=== PATIENT | male | born 1965 | race Caucasian/White ===

== ENCOUNTER 2017-06-04 08:25 | Emergency (ER) | payer OTHER ==
[2017-06-04 10:22] VITALS: BP 149/91
--- NOTE | 2017-06-04 19:06 | ED ---
Skin Complaint - HPI Summary HPI Summary: Patient presents with slightly raised non-pruritic erythematous hives to the dorsum of the hands bilaterally and cheeks which began yesterday and remained constant. He denies pain. He denies medication changes, detergents, or soaps. He states he is out in the [place] a lot, but has never had this before. He takes a blood thinner, but denies other medications. He is otherwise healthy. Denies sore throat, SOB, difficulty breathing. He denies seasonal allergies. Nothing makes the hives better or worse and he has not tried any medications for relief. - History of Current Complaint Chief Complaint: EDRashSkinAbscess Time Seen by Provider: 06/04/17 09:35 Stated Complaint: RASH Hx Obtained From: Patient Onset/Duration: Started Days Ago Skin Exposure Onset/Duration: Hours Ago Timing: Constant Onset Severity: Mild Current Severity: Mild Pain Intensity: 5 Pain Scale Used: 0-10 Numeric Skin Location: Face, Hand Character: Swelling, Redness, Raised Aggravating Symptom(s): Nothing Alleviating Symptom(s): Nothing Associated Signs & Symptoms: Negative Related History: Possible Reaction to: Environmental Exposure - Allergy/Home Medications Allergies/Adverse Reactions: Allergies Allergy/AdvReac Type Severity Reaction Status Date / Time Aspirin Allergy Unknown Verified 06/13/16 18:04 Reaction Details Penicillins Allergy GI Upset Verified 06/13/16 18:04 PMH/Surg Hx/FS Hx/Imm Hx Previously Healthy: Yes Cardiovascular History: Reports: Hx Hypertension Psychiatric History: Reports: Hx Substance Abuse - Immunization History Hx Pertussis Vaccination: No Immunizations Up to Date: Unable to Obtain/Confirm Infectious Disease History: No Infectious Disease History: Denies: Traveled Outside the [place] in Last 30 Days - Family History Known Family History: Positive: Unknown - Social History Occupation: Employed Full-time Lives: With Family Alcohol Use: Daily Alcohol Amount: 6 beers per day Hx Substance Use: No Substance Use Type: Reports: None Hx Tobacco Use: Yes Smoking Status (MU): Heavy Every Day Tobacco Smoker Review of Systems Constitutional: Negative Eyes: Negative Cardiovascular: Negative Respiratory: Negative Musculoskeletal: Negative Positive: Rash Neurological: Negative All Other Systems Reviewed And Are Negative: Yes Physical Exam Triage Information Reviewed: Yes Vital Signs On Initial Exam: Initial Vitals Temp Pulse Resp BP Pulse Ox 99 F 65 17 167/88 98 06/04/17 08:38 06/04/17 08:38 06/04/17 08:38 06/04/17 08:38 06/04/17 08:38 Vital Signs Reviewed: Yes Appearance: Positive: Well-Appearing, No Pain Distress Skin: Positive: Warm, Skin Color Reflects Adequate Perfusion, Other - slightly raised non-pruritic erythematous hives to the dorsum of the hands bilaterally and cheeks Head/Face: Positive: Normal Head/Face Inspection Eyes: Positive: Normal, SHIVA, Conjunctiva Clear Respiratory/Lung Sounds: Positive: Clear to Auscultation, Breath Sounds Present Cardiovascular: Positive: Normal, RRR Musculoskeletal: Positive: Normal, Strength/ROM Intact Neurological: Positive: Sensory/Motor Intact, Alert, Oriented to Person Place, Time AVPU Assessment: Alert Diagnostics - Vital Signs Vital Signs Temp Pulse Resp BP Pulse Ox 06/04/17 10:38 99.6 F 57 16 149/91 06/04/17 10:17 99.6 F 57 16 149/91 99 06/04/17 08:38 99 F 65 17 167/88 98 - Laboratory Lab Statement: Any lab studies that have been ordered have been reviewed, and results considered in the medical decision making process. Course/Dx - Course Course Of Treatment: Slightly raised non-pruritic erythematous hives to the dorsum of the hands bilaterally and cheeks. Possible reaction to environmental exposure. Discussed contact dermatitis reaction. He is given rx for steroids d/ t facial involvement. He is given hydroxyzine for allergic reaction cessation and triamcinalone cream .5% for hands only. Medications were reveiwed with patient. Encouarged to follow up with PCP or return to ED for worsening symptoms. Return precautions given. Patient understands and agrees with plan. Ok for discharge. - Differential Diagnoses - Skin Complaint Differential Diagnoses: Contact Dermatitis, Drug Rash, Poison [place], Poison [place] - Diagnoses Provider Diagnoses: Contact dermatitis Discharge - Discharge Plan Condition: Stable Disposition: HOME Prescriptions: Triamcinolone 0.5% CREAM(NF) [Triamcinolone 0.5% CREAM*] 1 applic TOPICAL BID # 1 tube hydrOXYzine HCL TAB* [Atarax 25 MG TAB*] 25 mg PO TID PRN #30 tab PRN Reason: Rash predniSONE TAB* [Deltasone TAB*] 50 mg PO DAILY #6 tab MDD 1 Patient Education Materials: Contact Dermatitis (ED), Cold Compress or Soak (ED ) Referrals: No Primary Care Phys,NOPCP [Primary Care Provider] - Additional Instructions: Follow up if symptoms become worse Prednisone taken daily in the morning for 6 days Use Hydroxyzine three times daily until symptoms resolve Benadryl 25mg at bedtime Triamcinalone cream .5% to hands only Do not use on the face
== END 2017-06-04 10:30 | disposition home or self-care (01) ==
LOC: ED 08:25
DX: L25.9 Unspecified contact dermatitis, unspecified cause (principal); R21 Rash and other nonspecific skin eruption; F17.210 Nicotine dependence, cigarettes, uncomplicated
CPT/HCPCS: 99281

== ENCOUNTER 2018-05-29 08:26 | Emergency (ER) | payer OTHER ==
--- NOTE | 2018-05-29 09:14 | ED ---
Throat Pain/Nasal Congestion - HPI Summary HPI Summary: 53-year-old male presents with dental pain since last night. He states that his jaw hurts. He states he cracked his tooth couple days ago. He states he's been taking ibuprofen which has been helping with the pain. He denies any fevers. No chest pain no shortness of breath. No pain with eye movement. No swelling around the eye. He states that his face has been swelling on the left upper jaw. Does not currently have a dentist. - History of Current Complaint Chief Complaint: EDDentalPain Time Seen by Provider: 05/29/18 08:38 - Allergies/Home Medications Allergies/Adverse Reactions: Allergies Allergy/AdvReac Type Severity Reaction Status Date / Time aspirin Allergy Fever Verified 05/29/18 08:36 Penicillins Allergy Hives Verified 05/29/18 08:36 PMH/Surg Hx/FS Hx/Imm Hx Endocrine/Hematology History: Denies: Hx Anticoagulant Therapy Cardiovascular History: Reports: Hx Hypertension Psychiatric History: Reports: Hx Substance Abuse Infectious Disease History: No Infectious Disease History: Denies: Traveled Outside the [place] in Last 30 Days - Family History Known Family History: Positive: Unknown - Social History Alcohol Use: Daily Alcohol Amount: 6 beers per day Hx Substance Use: No Substance Use Type: Reports: None Hx Tobacco Use: Yes Smoking Status (MU): Heavy Every Day Tobacco Smoker Review of Systems Negative: Fever Positive: Dental Pain Negative: Chest Pain Negative: Shortness Of Breath All Other Systems Reviewed And Are Negative: Yes Physical Exam Triage Information Reviewed: Yes Vital Signs On Initial Exam: Initial Vitals Temp Pulse Resp BP Pulse Ox 99 F 74 16 150/92 99 05/29/18 08:34 05/29/18 08:34 05/29/18 08:34 05/29/18 08:34 05/29/18 08:34 Vital Signs Reviewed: Yes Appearance: Positive: Well-Appearing Skin: Positive: Warm, Dry Head/Face: Positive: Normal Head/Face Inspection Eyes: Positive: Normal, Conjunctiva Clear ENT: Positive: Pharynx normal Dental: Positive: Percussion Tenderness @ - 15, Gross Decay/Caries @ - throughout, Dental Fracture @ - 15, Abscess @ - induration left upper jaw no fluatance, Other - missing teeth Neck: Positive: Supple, Nontender, No Lymphadenopathy Respiratory/Lung Sounds: Positive: Clear to Auscultation, Breath Sounds Present Cardiovascular: Positive: Normal, RRR Musculoskeletal: Positive: Normal Neurological: Positive: Normal Psychiatric: Positive: Normal Diagnostics - Vital Signs Vital Signs Temp Pulse Resp BP Pulse Ox 05/29/18 08:34 99 F 74 16 150/92 99 - Laboratory Lab Statement: Any lab studies that have been ordered have been reviewed, and results considered in the medical decision making process. EENT Course/Dx - Course Course Of Treatment: 53-year-old male presents with dental pain since last night. He states that his jaw hurts. He states he cracked his tooth couple days ago. He states he's been taking ibuprofen which has been helping with the pain. He denies any fevers. No chest pain no shortness of breath. No pain with eye movement. No swelling around the eye. He states that his face has been swelling on the left upper jaw. Does not currently have a dentist. On exam has mild edema left upper jaw. Tenderness to tooth 15. He has multiple teeth missing with cavities. Will place on [place]. Will follow up with dentist. Patient understands agrees with plan. - Differential Diagnoses Differential Diagnoses: Dental Abscess, Dental Caries, Fractured Tooth - Diagnoses Provider Diagnoses: Dental infection Discharge - Sign-Out/Discharge Documenting (check all that apply): Patient Departure - Discharge Plan Condition: Good Disposition: HOME Prescriptions: Clindamycin Cap(NF) [Clindamycin Cap 300 mg Cap(NF)] 300 mg PO TID #30 cap Patient Education Materials: Dental Abscess (ED) Referrals: Martinez Craven MD [Primary Care Provider] - Additional Instructions: Take clindamycin three times a day for 10 days Take ibuprofen or tyenlol every 6 hours for pain as needed Avoid hard, crunchy food until seen by dentist Return to ED if develop fever, shortness of breath, pain with eye movement Establish care with primary care physician and dentist as soon as possible - Billing Disposition and Condition Condition: GOOD Disposition: Home Images - Images Dental: 1 - fractured
[2018-05-29 09:36] VITALS: BP 150/90
== END 2018-05-29 09:22 | disposition home or self-care (01) ==
LOC: ED 08:26
DX: K04.7 Periapical abscess without sinus (principal); F17.200 Nicotine dependence, unspecified, uncomplicated; Z88.6 Allergy status to analgesic agent; Z88.0 Allergy status to penicillin
CPT/HCPCS: 99282

== ENCOUNTER 2018-07-31 13:54 | Emergency (ER) | payer MEDICAID, OTHER ==
--- NOTE | 2018-07-31 14:06 | ED ---
Head Injury - HPI Summary HPI Summary: The pt is a 53 [facility] post a fall [employer] due to EtOH intoxication. He hit his head during the fall. The pt notes a swelling on his forehead but denies LOC. He arrived from [facility]. - History Of Current Complaint Chief Complaint: EDHeadInjury Stated Complaint: FALL Time Seen by Provider: 07/31/18 14:03 Hx Obtained From: Patient Mechanism Of Injury: Fall From A Standing Position Onset/Duration: Still Present Severity Currently: None Pain Intensity: 0 Pain Scale Used: 0-10 Numeric Location of Head Injury: Frontal - Left Associated Signs And Symptoms: Negative - LOC, fall, Swelling - Allergies/Home Medications Allergies/Adverse Reactions: Allergies Allergy/AdvReac Type Severity Reaction Status Date / Time aspirin Allergy Fever Verified 05/29/18 08:36 Penicillins Allergy Hives Verified 05/29/18 08:36 PMH/Surg Hx/FS Hx/Imm Hx Previously Healthy: No Endocrine/Hematology History: Denies: Hx Anticoagulant Therapy Cardiovascular History: Reports: Hx Hypertension Sensory History: Denies: Hx Deafness Opthamlomology History: Denies: Hx Legally Blind Psychiatric History: Reports: Hx Substance Abuse Infectious Disease History: No Infectious Disease History: Denies: Traveled Outside the [place] in Last 30 Days - Family History Known Family History: Negative: Hypertension, Diabetes - Social History Alcohol Use: Daily Alcohol Amount: 6 beers per day Hx Substance Use: No Substance Use Type: Reports: None Hx Tobacco Use: Yes Smoking Status (MU): Heavy Every Day Tobacco Smoker Review of Systems Constitutional: Other - Positive: L forehead injury and swelling, fall Negative: Fever Negative: Syncope All Other Systems Reviewed And Are Negative: Yes Physical Exam - Summary Physical Exam Summary: Appearance: The patient is well-nourished in no acute distress and in no acute pain. Skin: The skin is warm and dry and skin color reflects adequate perfusion. HEENT: The head has a L forehead cephalohematoma The pupils are equal and reactive. The conjunctivae are clear and without drainage. Nares are patent and without drainage. Mouth reveals moist mucous membranes and the throat is without erythema and exudate. The external ears are intact. The ear canals are patent and without drainage. The tympanic membranes are intact. Neck: The neck is supple with full range of motion and non-tender. There are no carotid bruits. There is no neck vein distension. Respiratory: Chest is non-tender. Lungs are clear to auscultation and breath sounds are symmetrical and equal. Cardiovascular: Heart is regular rate and rhythm. There is no murmur or rub auscultated. There is no peripheral edema and pulses are symmetrical and equal. Abdomen: The abdomen is soft and non-tender. There are normal bowel sounds heard in all four quadrants and there is no organomegaly palpated. Musculoskeletal: There is no back tenderness noted. Extremities are non-tender with full range of motion. There is good capillary refill. There is no peripheral edema or calf tenderness elicited. Neurological: Patient is alert and oriented to person, place and time. The patient has symmetrical motor strength in all four extremities. Cranial nerves are grossly intact. Deep tendon reflexes are symmetrical and equal in all four extremities. GCS: 15 Triage Information Reviewed: Yes Vital Signs On Initial Exam: Initial Vitals Temp Pulse Resp BP Pulse Ox 98.2 F 80 16 154/89 99 07/31/18 13:57 07/31/18 13:57 07/31/18 13:57 07/31/18 13:57 07/31/18 13:57 Vital Signs Reviewed: Yes Diagnostics - Vital Signs Vital Signs Temp Pulse Resp BP Pulse Ox 07/31/18 13:57 98.2 F 80 16 154/89 99 - Laboratory Lab Statement: Any lab studies that have been ordered have been reviewed, and results considered in the medical decision making process. - CT Brain CT CT Interpretation Completed By: Radiologist - IMPRESSION: 1. NO EVIDENCE FOR ACUTE INTRACRANIAL ABNORMALITY. 2. HEMATOMA ANTERIOR TO THE LEFT FRONTAL BONE NOTED. The ED physician reviewed this radiology report. Cervical Spine CT CT Interpretation Completed By: Radiologist - IMPRESSION: 1. NO EVIDENCE FOR FRACTURE OR SUBLUXATION. 2. MILD CERVICAL SPONDYLOSIS DESCRIBED. The ED physician reviewed this radiology report. Head Injury Course/Dx Course Of Treatment: Mr. Nicole presented to the emergency department by ambulance [place] forehead. It's reported that he did not lose consciousness and comes in complaining only of the lump on his forehead. He admits to drinking alcohol which is a daily occurrence for him. He was alert and oriented 3 and cooperative. He fell promptly asleep and CT of his head and neck were negative. He was allowed to sleep and woke up about 8 hours later clinically sober with no complaints aside from a mild headache. - Diagnoses Provider Diagnoses: Head injury - Physician Notifications Instructed by Provider To: Have Pt Call For Appt. Discharge - Sign-Out/Discharge Documenting (check all that apply): Patient Departure - DC - Discharge Plan Condition: Improved Disposition: HOME Patient Education Materials: Head Injury (ED) Referrals: Martinez Craven MD [Primary Care Provider] - 3 Days Additional Instructions: Return to ED for any new or worsening symptoms - Billing Disposition and Condition Condition: IMPROVED Disposition: Home - Attestation Statements Document Initiated by Scribe: Yes Documenting Scribe: Sendy Swan Provider For Whom Tomas is Documenting (Include Credential): Dr. Rolf Thompson MD Scribe Attestation: Sendy Guidry, scribed for Dr. Rolf Thompson MD on 07/31/18 at 2118. Scribe Documentation Reviewed: Yes Provider Attestation: The documentation as recorded by the Sendy byrd accurately reflects the service I personally performed and the decisions made by me, Dr. Rolf Thompson MD
--- NOTE | 2018-07-31 16:53 | RAD ---
INDICATION: Head injury. COMPARISON: Comparison is made with a prior CT of the brain from August 11, 2015. TECHNIQUE: Contiguous axial sections of the brain were obtained from the skull base to the vertex without contrast. FINDINGS: The ventricles, cisterns and sulci are within normal limits. No significant focal abnormality or mass effect is seen. There is no evidence for hemorrhage. There is soft tissue swelling and a hematoma anterior to the left frontal bone. The hematoma measures 3.8 x 0.8 cm in size. No fracture is seen. The visualized portion of the paranasal sinuses and mastoid air cells appear clear. IMPRESSION: 1. NO EVIDENCE FOR ACUTE INTRACRANIAL ABNORMALITY. 2. HEMATOMA ANTERIOR TO THE LEFT FRONTAL BONE NOTED.
--- NOTE | 2018-07-31 17:00 | RAD ---
INDICATION: Trauma. COMPARISON: Comparison is made with prior study from August 11, 2015. TECHNIQUE: Contiguous axial sections were obtained from the skull base through the T1 vertebra. Images were reconstructed in the sagittal and coronal planes. FINDINGS: VERTEBRA: The vertebra are in normal alignment. No prevertebral soft tissue swelling or fracture is seen. C2-C3: No spinal canal or neural foraminal narrowing is seen. C3-C4: There is mild posterior uncinate process spurring. No significant spinal canal narrowing is present. There is mild bilateral neural foraminal narrowing. C4-C5: There is mild posterior uncinate process spurring. No significant spinal canal narrowing is present. There is mild bilateral neural foraminal narrowing. C5-C6: There is mild posterior uncinate process spurring. There is no significant spinal canal narrowing. There is mild neural foraminal narrowing on the right side. C6-C7: No spinal canal or neural foraminal narrowing is seen. LUNG APICES: The lung apices appear clear. IMPRESSION: 1. NO EVIDENCE FOR FRACTURE OR SUBLUXATION. 2. MILD CERVICAL SPONDYLOSIS DESCRIBED.
[2018-07-31] MEDS ORDERED: Acetaminophen TAB* 325 MG PO ONE (19:56)
[2018-07-31 20:44] VITALS: BP 141/86
== END 2018-07-31 20:28 | disposition home or self-care (01) ==
LOC: ED 13:54
DX: S09.90XA Unspecified injury of head, initial encounter (principal); W19.XXXA Unspecified fall, initial encounter; Y92.89 Other specified places as the place of occurrence of the external cause; F10.129 Alcohol abuse with intoxication, unspecified; Z59.0 Homelessness; F17.200 Nicotine dependence, unspecified, uncomplicated; Z88.5 Allergy status to narcotic agent; Z88.0 Allergy status to penicillin
CPT/HCPCS: 70450; 72125; 99282; A9270-GY

== ENCOUNTER 2018-09-29 14:50 | Emergency (ER) | payer MEDICAID, OTHER ==
--- NOTE | 2018-09-29 20:44 | ED ---
Dizziness - HPI Summary HPI Summary: The patient is a 53 y/o M presenting to [facility] with a chief complaint of dizziness and weakness starting this morning around 11:00. The dizziness occurs for a few seconds when he stands up, and he is currently not dizzy. Moving his head from side to side does not aggravate the dizziness, and lying down alleviates it. He is not currently experiencing dizziness. At time of onset, he also had mild fever, chills, weakness, shakiness, and he has also had one episode of diarrhea. He denies headache, SOB, CP, sore throat, ear ache, and abd pain. - History Of Current Complaint Chief Complaint: EDNauseaVomitDiarrh Stated Complaint: VOMITING Time Seen by Provider: 09/29/18 20:20 Hx Obtained From: Patient Onset/Duration: Resolved Timing: Seconds Severity Initially: Moderate Severity Currently: None Character: Weak, Dizzy Aggravating Factor(s): Other - standing up Alleviating Factor(s): Lying Down Associated Signs And Symptoms: Positive: Diarrhea, Fever, Chills, Other: - POSITIVE: weakness, shakiness; NEGATIVE: headache, sore throat, ear ache, SOB, CP. Negative: Chest Pain, SOB - Allergies/Home Medications Allergies/Adverse Reactions: Allergies Allergy/AdvReac Type Severity Reaction Status Date / Time aspirin Allergy Fever Verified 09/29/18 15:08 Penicillins Allergy Hives Verified 09/29/18 15:08 PMH/Surg Hx/FS Hx/Imm Hx Endocrine/Hematology History: Denies: Hx Anticoagulant Therapy Cardiovascular History: Reports: Hx Hypertension Sensory History: Denies: Hx Legally Blind, Hx Deafness Opthamlomology History: Denies: Hx Legally Blind Psychiatric History: Reports: Hx Substance Abuse - Surgical History Surgery Procedure, Year, and Place: none Infectious Disease History: No Infectious Disease History: Denies: Traveled Outside the [place] in Last 30 Days - Family History Known Family History: Negative: Hypertension, Diabetes - Social History Alcohol Use: Daily Alcohol Amount: 6 beers per day Hx Substance Use: No Substance Use Type: Reports: None Hx Tobacco Use: Yes Smoking Status (MU): Heavy Every Day Tobacco Smoker Review of Systems Positive: Fever - mild - felt warm but is unsure because of chills (not measured ), Chills, Other - shaky Negative: Sore Throat, Ear Ache Negative: Chest Pain Negative: Shortness Of Breath Positive: Diarrhea - one episode. Negative: Abdominal Pain Neurological: Other - dizzy Positive: Weakness. Negative: Headache All Other Systems Reviewed And Are Negative: Yes Physical Exam - Summary Physical Exam Summary: Appearance: Well appearing, no pain distress Skin: warm, dry, reflects adequate perfusion Head/face: normal Eyes: EOMI, SHIVA ENT: normal Neck: supple, non-tender Respiratory: CTA, breath sounds present Cardiovascular: RRR, pulses symmetrical Abdomen: non-tender, soft Musculoskeletal: normal, strength/ROM intact Neuro: normal, sensory motor intact, A&Ox3, GCS: 15 Triage Information Reviewed: Yes Vital Signs On Initial Exam: Initial Vitals Temp Pulse Resp BP Pulse Ox 98.9 F 65 16 162/88 99 09/29/18 15:05 09/29/18 15:05 09/29/18 15:05 09/29/18 15:05 09/29/18 15:05 Vital Signs Reviewed: Yes - David Coma Scale Best Eye Response: 4 - Spontaneous Best Motor Response: 6 - Obeys Commands Best Verbal Response: 5 - Oriented Coma Scale Total: 15 Diagnostics - Vital Signs Vital Signs Temp Pulse Resp BP Pulse Ox 09/29/18 20:23 77 145/91 98 09/29/18 20:00 65 99 09/29/18 19:01 100.1 F 87 18 137/86 96 09/29/18 16:56 99.9 F 64 22 152/83 100 09/29/18 15:05 98.9 F 65 16 162/88 99 - Laboratory Result Diagrams: 09/29/18 21:04 09/29/18 21:04 Lab Statement: Any lab studies that have been ordered have been reviewed, and results considered in the medical decision making process. - Radiology CXR Radiology Interpretation Completed By: Radiologist Summary of Radiographic Findings: No acute pathology. ED physician has reviewed this report. - CT Brain CT CT Interpretation Completed By: Radiologist Summary of CT Findings: FINDINGS: Brain: There are mild periventricular and subcortical lucencies consistent with chronic microvascular ischemic changes. Ventricles: Normal. No ventriculomegaly. Bones/joints: Normal. No acute fracture. Sinuses: Normal as visualized. No acute sinusitis. Mastoid air cells : Normal as visualized. No mastoid effusion. Soft tissues: Normal. IMPRESSION : No acute intracranial abnormality. ED physician has reviewed this report. - EKG 21:11 Cardiac Rate: NL - 70 BPM EKG Rhythm: Sinus Rhythm Summary of EKG Findings: No STEMI. Re-Evaluation - Re-Evaluation First Eval Re-Evaluation Time: 22:30 Change: Improved Comment: I spoke with patient about discharge. Dizzy Course/Dx - Course Course Of Treatment: The patient is a 53 y/o M presenting to [facility] with a chief complaint of dizziness that started at 11:00 this morning. He additionally c/o mild fever, chills, weakness, shakiness, and one episode of diarrhea; he denies headache, SOB, CP, sore throat, ear ache, and abd pain. There are no significant findings upon physical exam. In the ED course, blood and urine was obtained. EKG shows NSR. CXR reveals no acute pathology. Brain CT reveals no significant findings. Patient is diagnosed with viral syndrome. He is advised to use Tylenol for pain relief and drink lots of fluids, as well as follow up with PCP. Patient agrees with this plan and understands the need for return to the emergency department for worsening symptoms. - Diagnoses Differential Diagnosis/HQI/PQRI: Metabolic Abnormality, Other - viral syndrome Provider Diagnoses: Viral syndrome Discharge - Sign-Out/Discharge Documenting (check all that apply): Patient Departure - Patient will be discharged home. - Discharge Plan Condition: Stable Disposition: HOME Patient Education Materials: Viral Syndrome (ED) Referrals: Martinez Craven MD [Primary Care Provider] - 3 Days Additional Instructions: Take Tylenol for pain as needed. Drink lots of fluids. Follow up with your primary care provider in 2-3 days. Return to the emergency department if any new or worsening symptoms occur. - Billing Disposition and Condition Condition: STABLE Disposition: Home - Attestation Statements Document Initiated by Scribe: Yes Documenting Scribe: Kathleen Fernandez Provider For Whom Tomas is Documenting (Include Credential): Dr. Tarun Thomas MD Scribe Attestation: Kathleen Guidry scribed for Dr. Tarun Thomas MD on 09/29/18 at 2316. Scribe Documentation Reviewed: Yes Provider Attestation: The documentation as recorded by the Kathleen byrd accurately reflects the service I personally performed and the decisions made by me, Dr. Tarun Thomas MD Status of Scribe Document: Viewed
[2018-09-29 21:16] LABS: ABS Basophils 0.1 10^3/ul (0-0.2); ABS Eosinophils 0 10^3/ul (0-0.6); ABS Monocytes 0.6 10^3/ul (0-0.8); ABS Neutrophils 6.3 10^3/ul (1.5-7.7); ABS Nucleated RBC 0 10^3/ul; Eosinophil % 0.2 %; Hematocrit 45 % (42-52); Hemoglobin 15.4 g/dl (14.0-18.0); Lymphocyte % 12.1 %; Mean Corpuscular HGB Conc 34 g/dl (31-36); Mean Corpuscular Hemoglobin 33 pg (27-31); Mean Corpuscular Volume 96 fL (80-94); Mean Platelet Volume 6.3 fL (7.4-10.4); Nucleated Red Blood Cells % 0; Platelet Count 201 10^3/ul (150-450); Red Blood Count 4.71 10^6/ul (4.00-5.40); Red Cell Distribution Width 13 % (10.5-15)
[2018-09-29 21:25] LABS: INR 1.97 (0.77-1.02)
[2018-09-29 21:35] LABS: EGFR Non-African American 105.3 (>60)
[2018-09-29 22:45] LABS: Urine Appearance Clear; Urine Blood Negative (Negative); Urine Color Amber; Urine Ketones 1+ (Negative); Urine Protein 2+(100 mg/dL) (Negative); Urine Red Blood Cell 1+(3-5/hpf) (Absent); Urine Specific Gravity 1.027 (1.010-1.030); Urine Urobilinogen Positive (Negative); Urine White Blood Cell Trace(0-5/hpf) (Absent)
[2018-09-29 23:00] VITALS: BP 125/83
== END 2018-09-29 23:00 | disposition home or self-care (01) ==
LOC: ED 14:50
DX: B34.9 Viral infection, unspecified (principal); I10 Essential (primary) hypertension; F17.210 Nicotine dependence, cigarettes, uncomplicated; Z88.0 Allergy status to penicillin
CPT/HCPCS: 36415; 70450; 71046; 80053; 81003; 81015; 84484; 85025; 85610; 85730; 87086; 93005; 99283

== ENCOUNTER 2019-04-30 07:30 | Emergency (ER) | payer OTHER ==
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
[2019-04-30 08:30] LABS: ABS Basophils 0.1 10^3/ul (0-0.2); ABS Lymphocytes 0.9 10^3/ul (1.0-4.8); Eosinophil % 0.2 %; Hematocrit 21 % (42-52); Hemoglobin 7.4 g/dL (14.0-18.0); Mean Corpuscular HGB Conc 36 g/dL (31-36); Mean Corpuscular Hemoglobin 34 pg (27-31); Mean Corpuscular Volume 95 fL (80-94); Mean Platelet Volume 6.4 fL (7.4-10.4); Nucleated Red Blood Cells % 0.1; Platelet Count 232 10^3/uL (150-450); Red Blood Count 2.18 10^6 /uL (4.18-5.48); Red Cell Distribution Width 13 % (10-15)
[2019-04-30 08:38] LABS: INR 3.97 (0.82-1.09)
--- OUTSIDE RECORDS SUMMARY | 2019-04-30 08:42 | XMS REPORT | Continuity of Care Document ---
:1965 External Reference #:[id number] Author Name En Rivera Care Team Providers Name Role Phone Yani Do MD Primary Care Physician Unavailable Payers Date Identification Numbers Payment Provider Subscriber Effective: Policy Number: [id number] Everton Nicole 2018 PayID: [id number] [address] [place] [address] Expires: 2018 Policy Number: [id number] Everton Nicole Group Name: [id number] [address] PayID: [id number] [place] [address] Expires: 2016 Policy Number: [id number] Medicaid Melissa Nicole Group Name: [id number] [address] PayID: [id number] [place] [address] Problems Active Problems Provider Date History of thromboembolism of vein Martinez Craven M.D. Onset: 07/08/2016 Social History Type Date Description Comments Sex Unknown Tobacco Use Start: Unknown Heavy tobacco smoker (more than 10 cigarettes/day) Tobacco Use Start: Unknown End: Unknown Patient is a former smoker Smoking Status Reviewed: 06/01/18 Patient is a former smoker Allergies, Adverse Reactions, Alerts Active Allergies Reaction Severity Comments Date Penicillin nausea 06/15/2016 Aspirin nausea 06/15/2016 Medications Active Medications SIG Qnty Indications Ordering Provider Date Warfarin Sodium 1 tab daily or as 30tabs Z79.01 Yani Do MD 06/01/2018 7.5mg directed by Tablets Warfarin Sodium 1 tab by mouth 90tabs Yani Do MD 02/23/2017 5mg daily or as Tablets directed by Pill Splitter use as directed 1units Martinez Craven, 01/10/2017 [facility] M.D. History Medications Warfarin Sodium Take By Mouth as 90tabs Martinez Craven, 02/23/2017 - Directed Maximum M.D. 07/27/2018 3mg Tablets Daily Dose Of 3 Per Day Warfarin Sodium 1.5 tabs by mouth 180tabs Martinez Craven, 06/18/2016 - every day or as M.D. 03/08/2018 5mg Tablets directed Xarelto 1 by mouth twice 14tabs I82.5Z3 Martinez Craven, 06/15/2016 - 15mg daily/samples M.D. 06/20/2016 Tablets Naproxen Sodium 1-2 tabs by mouth Unknown - every 12 hours prn 06/24/2016 220mg Capsules Lovenox 1 injection 5units Martinez Craven, - subcutaneous once M.D. 09/06/2016 30mg/0.3ML daily (not taking) Solution Lovenox sc once a day (not 5units Martinez Craven, - taking) M.D. 09/06/2016 60mg/0.6ML Solution Immunizations CPT Code Status Date Vaccine Lot # [id number] Given 07/08/2016 Pneumococcal Conjugate Vaccine 13 Valent For [id number] Intramuscular Use Vital Signs Date Vital Result Comment 06/01/2018 8:10am Height 67 inches 5'7" Weight 139.00 lb Heart Rate 77 /min BP Systolic 140 mmHg BP Diastolic 80 mmHg O2 % BldC Oximetry 99 % BMI (Body Mass Index) 21.8 kg/m2 09/06/2016 10:48am Weight 139.12 lb Heart Rate 70 /min BP Systolic Sitting 150 mmHg BP Diastolic Sitting 88 mmHg Body Temperature 98.2 F O2 % BldC Oximetry 97 % 07/08/2016 11:39am Height 66 inches 5'6" Weight 134.38 lb Heart Rate 59 /min BP Systolic Sitting 130 mmHg BP Diastolic Sitting 78 mmHg Body Temperature 97.1 F O2 % BldC Oximetry 98 % BMI (Body Mass Index) 21.7 kg/m2 06/15/2016 2:02pm Height 66.50 inches 5'6.50" Weight 134.00 lb Heart Rate 63 /min BP Systolic 130 mmHg BP Diastolic 76 mmHg Body Temperature 97.7 F O2 % BldC Oximetry 98 % BMI (Body Mass Index) 21.3 kg/m2 Results Test Date Facility Test Result H/L Range Note Protime W/ Inr 12/07/2018 [facility] Prothrombin Time 65.8 Inr 5.3 Protime W/ Inr 11/23/2018 [facility] Prothrombin Time 45.5 Inr 3.7 Protime W/ Inr 11/01/2018 [facility] Prothrombin Time 50.5 Inr 4.1 Laboratory test 09/29/2018 [facility] Rapid SEE RESULT [address] [place] [address] Antigen [phone] Rapid Influenza 09/29/2018 [facility] Influenza A NEGATIVE Negative 2 A & B Molecular [address] Molecular [place], [place] [id number] [phone] Influenza B Molecular NEGATIVE Negative Urine Culture And 09/29/2018 [facility] Urine Culture SEE RESULT [address] [place] [address] [phone] Urinalysis Profile 09/29/2018 [facility] Urine Color Sammi [address] [place] [address] [phone] Urine Appearance Clear Urine Specific Peerless 1.027 N 1.010-1.030 Urine pH 7.0 N 5-9 Urine Urobilinogen Positive 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 Urine Ketones 1+ 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 Urine Protein 2+(100 mg/dL) 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 Urine Leukocytes Negative Negative Urine Blood Negative Negative Urine Nitrite Negative Negative Urine Bilirubin Negative Negative Urine Glucose 2+(150 mg/dL) 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 Urine White Blood Cell Trace(0-5/hpf) Absent Urine Red Blood Cell 1+(3-5/hpf) Abnormal Absent Urine Bacteria Absent Absent Urine Squamous Epithelial Cell Present Abnormal Absent Urine Yeast Present Abnormal Absent CBC Auto Diff 09/29/2018 [facility] White Blood 8.0 10^3/uL N 3.5-10.[address] [place] [address] [phone] Red Blood Count 4.71 10^6/uL N 4.00-5.40 Hemoglobin 15.4 g/dL N 14.0-18.0 Hematocrit 45 % N 42-52 Mean Corpuscular Volume 96 fL High 80-94 Mean Corpuscular Hemoglobin 33 pg High 27-31 Mean Corpuscular HGB Conc 34 g/dL N 31-36 Red Cell Distribution Width 13 % N 10.5-15 Platelet Count 201 10^3/uL N 150-450 Mean Platelet Volume 6.3 fL Low 7.4-10.4 Abs Neutrophils 6.3 10^3/uL N 1.5-7.7 Abs Lymphocytes 1.0 10^3/uL N 1.0-4.8 Abs Monocytes 0.6 10^3/uL N 0-0.8 Abs Eosinophils 0 10^3/uL N 0-0.6 Abs Basophils 0.1 10^3/uL N 0-0.2 Abs Nucleated RBC 0 10^3/uL Granulocyte % 79.6 % Lymphocyte % 12.1 % Monocyte % 7.2 % Eosinophil % 0.2 % Basophil % 0.9 % Nucleated Red Blood Cells % 0 Inr/Protime 09/29/2018 [facility] Inr 1.97 High 0.77-1.[address] [place] [address] [phone] Laboratory test 09/29/2018 [facility] Troponin-I 0.00 ng/mL < 0.04 [address] (TnI) [place] [address] [phone] Laboratory test 09/29/2018 [facility] Partial 40.7 High 26.0- 36.[address] [place] [address] Time PTT [phone] Comp Metabolic 09/29/2018 [facility] Sodium 138 mmol/L N 135- [address] [place] [address] [phone] Potassium 4.1 mmol/L N 3.5-5.0 Chloride 102 mmol/L N 101-111 Co2 Carbon Dioxide 29 mmol/L N 22-32 Anion Gap 7 mmol/L N 2-11 Glucose 143 mg/dL High 70-100 Blood Urea Nitrogen 16 mg/dL N 6-24 Creatinine 0.77 mg/dL N 0.67-1.17 BUN/Creatinine Ratio 20.8 High 8-20 Calcium 9.3 mg/dL N 8.6-10.3 Total Protein 7.0 g/dL N 6.4-8.9 Albumin 4.3 g/dL N 3.2-5.2 Globulin 2.7 g/dL N 2-4 Albumin/Globulin Ratio 1.6 N 1-3 Total Bilirubin 0.80 mg/dL N 0.2-1.0 Alkaline Phosphatase 63 U/L N 34-104 Alt 34 U/L N 7-52 Ast 44 U/L High 13-39 Egfr Non- 105.3 >60 Egfr 127.4 >60 5 Protime W/ Inr 08/15/2018 [facility] Prothrombin Time 34.3 Inr 2.8 Protime W/ Inr 07/27/2018 [facility] Prothrombin Time 46.0 Inr 3.8 Protime W/ Inr 07/18/2018 [facility] Prothrombin Time 31.7 Inr 2.6 Protime W/ Inr 07/11/2018 [facility] Prothrombin Time 12.1 Inr 1.0 Laboratory test 06/19/2018 [facility] Lgi1-IgG Cba, Negative Negative [address] [place] [address] [phone] Caspr2-IgG Cba,S Negative Negative 7 Paraneoplastic 06/19/2018 [facility] Paraneoplastic Ab See Comment [address] [place] [address] [phone] Anti-Neuronal Nuclear Ab Type1 Negative titer <1:240 Reflex Added None. 9 Anti-Neuronal Nuclear Ab Type2 Negative titer <1:240 10 Anti-Neuronal Nuclear Ab Type3 Negative titer <1:240 11 Anti-Glial/Neuronal Nuc Ab-1 A Negative titer <1:240 12 Purkinje Cell Cytoplasm Type 1 Negative titer <1:240 13 Purkinje Cell Cytoplasm Type 2 Negative titer <1:240 14 Purkinje Cell Cytoplasm Typ Tr Negative titer <1:240 15 Amphiphysin Antibody Negative titer <1:240 16 CRMP-5 IgG Antibody Negative titer <1:240 17 Anti-Striated Muscle Antibody Negative titer <1:120 18 Calcium Channel Binding Ab P/Q 0.00 nmol/L <=0.02 19 N Type Calcium Channel Binding 0.00 nmol/L <=0.03 20 ACh Receptor Muscle Binding Ab See Comment nmol/L <=0.02 21 AChR Ganglionic Neuronal Ab 0.00 nmol/L <=0.02 22 Voltage-Gated Potassium Chann 0.07 nmol/L Abnormal <=0.02 23 Laboratory 06/19/2018 [facility] RBC 53.8 U/gHb [address] Cholinesterase finding [place], [place] [id number] [phone] 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 (Prothrombi [address] [address] Mutation n) [place] [address] [phone] Prothrombin [id number] Interp See Comment 25 Prothrombin Mutation Review By See Comment 26 Factor 5 06/19/2018 [facility] Factor V Heterozygous 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 Leiden [address] [place] [address] Mutation [phone] Factor V Leiden Interpretation See Comment 27 Factor V Leiden Reviewed By See Comment 28 Laboratory test 06/19/2018 [facility] Protein S 113 % 65 - [address] Activity 160 [place], [place] [address] [phone] Lupus 06/19/2018 [facility] Prothrombin 10.0 Abnormal 30 Anticoagulant AB [address] Time(Lac) [place] [address] [phone] Lac Inr 0.9 Lac Aptt 31 sec 26 - 36 Lac DRVVT Screen Ratio 0.7 ratio 0.0 - 1.1 Lupus Anticoagulant Interpreta See Comment 31 Laboratory test 06/19/2018 [facility] Protein C 94 % 70 - 150 [address] [place] [address] [phone] Anti Thrombin III Activity 86 % 80 - 130 33 Protein S Antigen 142 % 65 - 160 34 Paraneoplastic 06/19/2018 [facility] Paraneoplastic Ab See Comment [address] [place] [address] [phone] Anti-Neuronal Nuclear Ab Type1 Negative titer <1:240 Reflex Added None. 36 Anti-Neuronal Nuclear Ab Type2 Negative titer <1:240 37 Anti-Neuronal Nuclear Ab Type3 Negative titer <1:240 38 Anti-Glial/Neuronal Nuc Ab-1 A Negative titer <1:240 39 Purkinje Cell Cytoplasm Type 1 Negative titer <1:240 40 Purkinje Cell Cytoplasm Type 2 Negative titer <1:240 41 Purkinje Cell Cytoplasm Typ Tr Negative titer <1:240 42 Amphiphysin Antibody Negative titer <1:240 43 CRMP-5 IgG Antibody Negative titer <1:240 44 Anti-Striated Muscle Antibody Negative titer <1:120 45 Calcium Channel Binding Ab P/Q 0.00 nmol/L <=0.02 46 N Type Calcium Channel Binding 0.00 nmol/L <=0.03 47 ACh Receptor Muscle Binding Ab See Comment nmol/L <=0.02 48 AChR Ganglionic Neuronal Ab 0.00 nmol/L <=0.02 49 Voltage-Gated Potassium Chann 0.07 nmol/L Abnormal <=0.02 50 Laboratory test 06/19/2018 [facility] Factor 8 Activity TNP ( ) [address] [place] [address] [phone] Homocysteine 13 mcmol/L 52 Laboratory test 06/19/2018 [facility] Protein C 94 % 70 - 150 [address] [place] [address] [phone] Anti Thrombin III Activity 86 % 80 - 130 54 Protein S Antigen 142 % 65 - 160 55 Laboratory test 06/19/2018 [facility] Protein S 113 % 65 - [address] Activity 160 [place], [place] [address] [phone] Lupus 06/19/2018 [facility] Prothrombin 10.0 Abnormal 57 Anticoagulant AB [address] Time(Lac) sec [place], [place] [id number] [phone] Lac Inr 0.9 Lac Aptt 31 sec 26 - 36 Lac DRVVT Screen Ratio 0.7 ratio 0.0 - 1.1 Lupus Anticoagulant Interpreta See Comment 58 Factor 5 06/19/2018 [facility] Factor V Heterozygous 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 Leiden [address] [place] [address] Mutation [phone] Factor V Leiden Interpretation See Comment 59 Factor V Leiden Reviewed By See Comment 60 Laboratory 06/19/2018 [facility] RBC 53.8 U/gHb [address] [place] [address] [phone] 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 (Prothrombi [address] [address] Mutation n) [place] [address] [phone] Prothrombin [id number] Interp See Comment 62 Prothrombin Mutation Review By See Comment 63 Protime W/ Inr 06/01/2018 [facility] Prothrombin Time 19.4 Inr 1.6 Protime W/ Inr 05/11/2018 [facility] Prothrombin Time 24.5 Inr 2.0 Protime W/ Inr 04/13/2018 [facility] Prothrombin Time 24.6 Inr 2.0 Protime W/ Inr 03/15/2018 [facility] Prothrombin Time 35.7 Inr 2.9 Protime W/ Inr 03/08/2018 [facility] Prothrombin Time 16.0 Inr 1.3 Protime W/ Inr 02/07/2018 [facility] Prothrombin Time 35.6 Inr 2.9 Protime W/ Inr 01/20/2018 [facility] Prothrombin Time 29.0 Inr 2.4 Protime W/ Inr 01/05/2018 [facility] Prothrombin Time 40.9 Inr 3.3 Protime W/ Inr 12/22/2017 [facility] Prothrombin Time 29.2 Inr 2.4 Protime W/ Inr 12/15/2017 [facility] Prothrombin Time 45.8 Inr 3.7 Protime W/ Inr 12/01/2017 [facility] Prothrombin Time 29.7 Inr 2.4 Protime W/ Inr 11/23/2017 [facility] Prothrombin Time 51.1 Inr 4.1 Protime W/ Inr 11/09/2017 [facility] Prothrombin Time 31.3 Inr 2.6 Protime W/ Inr 11/02/2017 [facility] Prothrombin Time 47.5 Inr 3.9 Protime W/ Inr 09/28/2017 [facility] Prothrombin Time 29.4 Inr 2.4 Protime W/ Inr 08/31/2017 [facility] Prothrombin Time 35.1 Inr 2.9 Protime W/ Inr 08/01/2017 [facility] Prothrombin Time 36.1 Inr 3.0 Protime W/ Inr 07/06/2017 [facility] Prothrombin Time 32.2 Inr 2.6 Protime W/ Inr 06/22/2017 [facility] Prothrombin Time 21.4 Inr 1.8 Protime W/ Inr 05/23/2017 [facility] Prothrombin Time 33.6 Inr 2.7 Protime W/ Inr 05/09/2017 [facility] Prothrombin Time 25.1 Inr 2.1 Protime W/ Inr 05/02/2017 [facility] Prothrombin Time 23.7 Inr 1.9 Protime W/ Inr 04/22/2017 [facility] Prothrombin Time 20.8 64 Inr 1.7 Protime W/ Inr 04/06/2017 [facility] Prothrombin Time 34.8 Inr 2.8 Protime W/ Inr 03/30/2017 [facility] Prothrombin Time 23.6 Inr 1.9 Protime W/ Inr 03/23/2017 [facility] Prothrombin Time 23.8 Inr 2.0 Protime W/ Inr 03/02/2017 [facility] Prothrombin Time 29.0 Inr 2.4 Protime W/ Inr 02/23/2017 [facility] Prothrombin Time 20.0 Inr 1.6 Protime W/ Inr 02/08/2017 [facility] Prothrombin Time 20.9 Inr 1.7 Protime W/ Inr 01/25/2017 [facility] Prothrombin Time 28.2 Inr 2.3 Protime W/ Inr 01/18/2017 [facility] Prothrombin Time 19.5 Inr 1.6 Protime W/ Inr 01/10/2017 [facility] Prothrombin Time 26.8 Inr 2.2 Protime W/ Inr 12/31/2016 [facility] Prothrombin Time 16.6 Inr 1.4 Inr/Protime 12/24/2016 [facility] Inr 2.28 High 0.89-1.[address] [place] [address] [phone] Inr/Protime 11/17/2016 [facility] Inr 2.79 High 0.89-1.[address] [place] [address] [phone] Protime W/ Inr 10/29/2016 [facility] Inr 3.69 High 0.89-1.[address] [place] [address] [phone] Protime W/ Inr 10/21/2016 [facility] Inr 1.61 High 0.89-1.[address] [place] [address] [phone] Protime W/ Inr 10/14/2016 [facility] Prothrombin Time 19.6 Inr 1.6 Protime W/ Inr 09/29/2016 [facility] Prothrombin Time 36.4 Inr 3.0 Protime W/ Inr 09/22/2016 [facility] Prothrombin Time 48.0 Inr 4.0 Protime W/ Inr 09/13/2016 [facility] Prothrombin Time 29.8 Inr 2.5 Protime W/ Inr 09/06/2016 [facility] Prothrombin Time 48.0 Inr 4.0 Laboratory test 09/04/2016 [facility] PSA Screening 1.641 ng/mL N 0-4.000 65 finding [address] [place] [address] [phone] Lipid Profile 09/04/2016 [facility] Triglycerides 60 mg/dL N 66 (Trig/Chol/HDL) [address] [place] [address] [phone] Cholesterol 178 mg/dL N 67 HDL Cholesterol 68.0 mg/dL N 68 LDL Cholesterol 98 mg/dL N 69 Comp Metabolic Panel 09/04/2016 [facility] Sodium 136 mmol/L N 133-145 [address] [place] [address] [phone] Potassium 4.3 mmol/L N 3.5-5.0 Chloride 103 mmol/L N 101-111 Co2 Carbon Dioxide 27 mmol/L N 22-32 Anion Gap 6 mmol/L N 2-11 Glucose 88 mg/dL N 70-100 Blood Urea Nitrogen 13 mg/dL N 6-24 Creatinine 0.75 mg/dL N 0.67-1.17 BUN/Creatinine Ratio 17.3 N 8-20 Calcium 9.2 mg/dL N 8.6-10.3 Total Protein 6.9 g/dL N 6.4-8.9 Albumin 4.1 g/dL N 3.2-5.2 Globulin 2.8 g/dL N 2-4 Albumin/Globulin Ratio 1.5 N 1-3 Total Bilirubin 0.60 mg/dL N 0.2-1.0 Alkaline Phosphatase 81 U/L N 34-104 Alt 25 U/L N 7-52 Ast 33 U/L N 13-39 Egfr Non- 109.4 N >60 Egfr 140.6 N >60 70 Protime W/ Inr 08/05/2016 [facility] Prothrombin Time 28.8 Inr 2.4 Protime W/ Inr 07/29/2016 [facility] Prothrombin Time 31.2 Inr 2.6 Protime W/ Inr 07/22/2016 [facility] Prothrombin Time 20.6 Inr 1.7 Protime W/ Inr 07/08/2016 [facility] Prothrombin Time 30.2 Inr 2.5 Protime W/ Inr 07/01/2016 [facility] Prothrombin Time 16.2 Inr 1.3 Protime W/ Inr 06/28/2016 [facility] Prothrombin Time 25 Inr 2.1 Protime W/ Inr 06/24/2016 [facility] Prothrombin Time 12.7 Inr 1.1 1 SEE RESULT BELOW Name: FERNAPRYLINÉSMELISSA Naz : [address]: Tarun Thomas MD Acct: [id number] Unit: [id number] AGE: 53 Location: ED Re09/29/18 SEX: M Status: REG ER SPEC: [id number] LAITH: 09/29/18-[address]: Tarun Thomas MD REQ: [id number] RECD: 09/29/18 STATUS: ELIEL BURNETT DR: Martinez Craven MD _ SOURCE: NASAL SPDESC: ORDERED: Flu A B Request Procedure Result Reported Site Rapid Influenza A B Request Final 09/29/182054 ML Specimen received for Influenza A/B Molecular testing * ML - Main Lab . END OF REPORT DEPARTMENT OF PATHOLOGY, [address] [place] [address] Sixto Medina M.D. Director [facility] # [id number] 2 [employer] Checker: [id number] 3 SEE RESULT BELOW Name: MELISSA NICOLE : [address]: Tarun Thomas MD Acct: [id number] Unit: [id number] AGE: 53 Location: ED Re09/29/18 SEX: M Status: DEP ER SPEC: [id number] LAITH: 09/29/18-[address]: Tarun Thomas MD REQ: [id number] RECD: 09/29/18 STATUS: ELIEL BURNETT DR: Martinez Craven MD _ SOURCE: URINE [facility]: ORDERED: Urine Culture Procedure Result Reported Site Urine Culture Final 09/30/18- 1711 ML No Growth (<1,000 CFU/mL) * ML - Main Lab . END OF REPORT DEPARTMENT OF PATHOLOGY, [address] [place] [address] Sixto Medina M.D. Director [facility] # [id number] 4 Troponin-I testing on Plasma Separator Tubes (PST) has a known false positive rate of 0.20-0.40%. All positive troponins reflex immediate secondary confirmatory testing. 5 Because ethnic data is not always readily available, this report includes an eGFR for both -Americans and non- Americans. The National Kidney Disease Education Program (NKDEP) does not endorse the use of the MDRD equation for patients that are not between the ages of 18 and 70, are , have extremes of body size, muscle mass, or nutritional status, or are non- or non-. According to the National Kidney Foundation, irrespective of diagnosis, the stage of the disease is based on the level of kidney function: Stage Description GFR(mL/min/1.73 m(2)) 1 Kidney damage with normal or decreased GFR 90 2 Kidney damage with mild decrease in GFR 60-89 3 Moderate decrease in GFR 30-59 4 Severe decrease in GFR 15-29 5 Kidney failure <15 (or dialysis) 6 ADDITIONAL INFORMATION This test was developed and its performance characteristics determined by [facility] in a manner consistent with CLIA requirements. This test has not been cleared or approved by the U.S. Food and Drug Administration. Test Performed by: [facility] - [address] [address] 7 ADDITIONAL INFORMATION This test was developed and its performance characteristics determined by [facility] in a manner consistent with CLIA requirements. This test has not been cleared or approved by the U.S. Food and Drug Administration. Test Performed by: [address] [address] 8 Reflexed test(s) performed per testing algorithm. * Part of this testing algorithm includes [facility]' ARBI: Acetylcholine Receptor (Muscle AChR) Binding Antibody, Serum. This test is temporarily unavailable; therefore, this result is not incorporated into the interpretation. 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 * The results of a positive VGKC-complex antibody with negative LGI1 and CASPR2-IgGs needs to be interpreted with caution. The detection of the VGKC-complex antibodies in isolation does not define an autoimmune neurological disorder. The influence of monoclonal and polyclonal gammopathies is uncertain. Oncological significance is uncertain and a paraneoplastic basis should be considered, according to age, sex, and other risk factors. * References: van James A, Latoya M, Niharika DM, Leatha S, Anai M, Glenis E, Caden RH, Marah R, Sallie P, Sophie S, Satya M. The relevance of VGKC positivity in the absence of LGI1 and Caspr2 antibodies. Neurology, 2016; 86; 6186-6173. * Garfield B, Urban M, Saranya T, Dontrell I, Jacki S, Migel C, Jaden W, Kareen C, Kalyan C, Rocky M, Diann P, Sam L, Pasquale J, Duke A, Graeme P, Aamir S. Intracellular and non-neuronal targets of voltage-gated potassium channel complex antibodies. JNNP, Mar 02 2017. * 9 ADDITIONAL INFORMATION This test was developed and its performance characteristics determined by [facility] in a manner consistent with CLIA requirements. This test has not been cleared or approved by the U.S. Food and Drug Administration. 10 ADDITIONAL INFORMATION This test was developed and its performance characteristics determined by [facility] in a manner consistent with CLIA requirements. This test has not been cleared or approved by the U.S. Food and Drug Administration. 11 ADDITIONAL INFORMATION This test was developed and its performance characteristics determined by [facility] in a manner consistent with CLIA requirements. This test has not been cleared or approved by the U.S. Food and Drug Administration. 12 ADDITIONAL INFORMATION This test was developed and its performance characteristics determined by [facility] in a manner consistent with CLIA requirements. This test has not been cleared or approved by the U.S. Food and Drug Administration. 13 ADDITIONAL INFORMATION This test was developed and its performance characteristics determined by [facility] in a manner consistent with CLIA requirements. This test has not been cleared or approved by the U.S. Food and Drug Administration. 14 ADDITIONAL INFORMATION This test was developed and its performance characteristics determined by [facility] in a manner consistent with CLIA requirements. This test has not been cleared or approved by the U.S. Food and Drug Administration. 15 ADDITIONAL INFORMATION This test was developed and its performance characteristics determined by [facility] in a manner consistent with CLIA requirements. This test has not been cleared or approved by the U.S. Food and Drug Administration. 16 ADDITIONAL INFORMATION This test was developed and its performance characteristics determined by [facility] in a manner consistent with CLIA requirements. This test has not been cleared or approved by the U.S. Food and Drug Administration. 17 ADDITIONAL INFORMATION This test was developed and its performance characteristics determined by [facility] in a manner consistent with CLIA requirements. This test has not been cleared or approved by the U.S. Food and Drug Administration. 18 ADDITIONAL INFORMATION This test was developed and its performance characteristics determined by [facility] in a manner consistent with CLIA requirements. This test has not been cleared or approved by the U.S. Food and Drug Administration. 19 ADDITIONAL INFORMATION This test was developed and its performance characteristics determined by [facility] in a manner consistent with CLIA requirements. This test has not been cleared or approved by the U.S. Food and Drug Administration. 20 ADDITIONAL INFORMATION This test was developed and its performance characteristics determined by [facility] in a manner consistent with CLIA requirements. This test has not been cleared or approved by the U.S. Food and Drug Administration. 21 Due to reagent unavailability, ARBI: Acetylcholine Receptor (Muscle AChR) Binding Antibody, Serum, will not be performed at [facility]. If Acetylcholine Receptor Binding Antibody testing is desired, please order FABAB: Acetylcholine Receptor Binding Antibody, which is performed at another laboratory. Given the differences in assay methodologies, direct comparison of quantitative results is not possible. Interpretation of these results should be made within the clinical context. If any concerns arise, laboratory consultation in regards to these results is available by calling . ADDITIONAL INFORMATION This test was developed and its performance characteristics determined by [facility] in a manner consistent with CLIA requirements. This test has not been cleared or approved by the U.S. Food and Drug Administration. 22 ADDITIONAL INFORMATION This test was developed and its performance characteristics determined by [facility] in a manner consistent with CLIA requirements. This test has not been cleared or approved by the U.S. Food and Drug Administration. 23 ADDITIONAL INFORMATION This test was developed and its performance characteristics determined by [facility] in a manner consistent with CLIA requirements. This test has not been cleared or approved by the U.S. Food and Drug Administration. 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 The Prothrombin [id number] mutation is a risk factor for venous thromboembolism. The individual may have other genetic and environmental risk factors for thrombosis. Consider genetic consultation and counseling of potentially affected family members regarding laboratory testing. ADDITIONAL INFORMATION This test is a direct mutation analysis using PCR amplification, signal generation and release by cleavage of sequence specific alleles ([employer], [employer], [place], [place]). This test has been modified from the graphic coordinator's instructions. Its performance characteristics were determined by [facility] in a manner consistent with CLIA requirements. This test has not been cleared or approved by the U.S. Food and Drug Administration. 26 RESULT: Stefano Higgins M.D., Ph.D. Test Performed by: [facility] - [address] [address] 27 This individual DOES have the factor V Leiden (R506Q) mutation on ONE allele, (heterozygous carrier). The factor V Leiden (R506Q) mutation is a risk factor for venous thromboembolism. The individual may have other genetic and environmental risk factors for thrombosis. Consider genetic consultation and counseling of potentially affected family members regarding laboratory testing. ADDITIONAL INFORMATION This test is a direct mutation analysis using PCR amplification, signal generation and release by cleavage of sequence specific alleles ([employer], [employer], [place]). This test has been modified from the graphic coordinator's instructions. Its performance characteristics were determined by [facility] in a manner consistent with CLIA requirements. This test has not been cleared or approved by the U.S. Food and Drug Administration. 28 RESULT: Stefano Higgins M.D., Ph.D. Test Performed by: [address] [address] 29 Anticoagulants (for example oral direct thrombin inhibitors like dabigatran, anti-Xa inhibitors like rivaroxaban, apixaban or edoxaban), heparin levels greater than 1 U/mL, inhibitors of the APTT test system (for example lupus anticoagulant), inhibitors of bovine factor V (for example antibodies that may arise in patients treated with certain bovine topical thrombin preparations) may produce a falsely normal or elevated protein S activity result. Suggest clinical correlation and if indicated consider repeat assay of protein S activity and/or antigen in the absence of anticoagulation therapy. ADDITIONAL INFORMATION This test has been modified from the graphic coordinator's instructions. Its performance characteristics were determined by [facility] in a manner consistent with CLIA requirements. This test has not been cleared or approved by the U.S. Food and Drug Administration. Test Performed by: [facility] - [address] [address] 30 REFERENCE VALUE 10.3 - 12.8 31 No evidence of a lupus-like anticoagulant based on results of Prothrombin Time (PT), Activated Partial Thromboplastin Time (APTT), and Dilute Russells Viper Venom Time (DRVVT). Interpretation not reviewed by physician. Test Performed by: [facility] - [address] [address] 32 ADDITIONAL INFORMATION This test has been modified from the graphic coordinator's instructions. Its performance characteristics were determined by [facility] in a manner consistent with CLIA requirements. This test has not been cleared or approved by the U.S. Food and Drug Administration. Test Performed by: [facility] - [address] [address] 33 Direct factor Xa inhibitor therapy (rivaroxaban (Xarelto), apixaban (Eliquis), edoxaban (Savaysa)) may interfere with the functional Xa based AT assay and cause an overestimation of AT activity thus potentially masking diagnosis of AT deficiency. Suggest clinical correlation and consider repeat AT testing remote from direct factor Xa inhibitor therapy, if clinically indicated. ADDITIONAL INFORMATION This test has been modified from the graphic coordinator's instructions. Its performance characteristics were determined by [facility] in a manner consistent with CLIA requirements. This test has not been cleared or approved by the U.S. Food and Drug Administration. Test Performed by: [facility] - [address] [address] 34 ADDITIONAL INFORMATION This test has been modified from the graphic coordinator's instructions. Its performance characteristics were determined by [facility] in a manner consistent with CLIA requirements. This test has not been cleared or approved by the U.S. Food and Drug Administration. Test Performed by: [address] [address] 35 Reflexed test(s) performed per testing algorithm. * Part of this testing algorithm includes [facility]' ARBI: Acetylcholine Receptor (Muscle AChR) Binding Antibody, Serum. This test is temporarily unavailable; therefore, this result is not incorporated into the interpretation. 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 * The results of a positive VGKC-complex antibody with negative LGI1 and CASPR2-IgGs needs to be interpreted with caution. The detection of the VGKC-complex antibodies in isolation does not define an autoimmune neurological disorder. The influence of monoclonal and polyclonal gammopathies is uncertain. Oncological significance is uncertain and a paraneoplastic basis should be considered, according to age, sex, and other risk factors. * References: van James A, Latoya M, Niharika DM, Leatha S, Anai M, Glenis E, Caden RH, Marah R, Sallie P, Sophie Christina, Satya Ho. The relevance of VGKC positivity in the absence of LGI1 and Caspr2 antibodies. Neurology, 2016; 86; 4909-9154. * Garfield Clark, Urban M, Saranya T, Dontrell I, Jacki S, Migel C, Jaden W, Kareen C, Kalyan C, Rocky M, Diann P, Sam L, Pasquale J, Duke A, Graeme P, Aamir S. Intracellular and non-neuronal targets of voltage-gated potassium channel complex antibodies. JN, Mar 02 2017. * 36 ADDITIONAL INFORMATION This test was developed and its performance characteristics determined by [facility] in a manner consistent with CLIA requirements. This test has not been cleared or approved by the U.S. Food and Drug Administration. 37 ADDITIONAL INFORMATION This test was developed and its performance characteristics determined by [facility] in a manner consistent with CLIA requirements. This test has not been cleared or approved by the U.S. Food and Drug Administration. 38 ADDITIONAL INFORMATION This test was developed and its performance characteristics determined by [facility] in a manner consistent with CLIA requirements. This test has not been cleared or approved by the U.S. Food and Drug Administration. 39 ADDITIONAL INFORMATION This test was developed and its performance characteristics determined by [facility] in a manner consistent with CLIA requirements. This test has not been cleared or approved by the U.S. Food and Drug Administration. 40 ADDITIONAL INFORMATION This test was developed and its performance characteristics determined by [facility] in a manner consistent with CLIA requirements. This test has not been cleared or approved by the U.S. Food and Drug Administration. 41 ADDITIONAL INFORMATION This test was developed and its performance characteristics determined by [facility] in a manner consistent with CLIA requirements. This test has not been cleared or approved by the U.S. Food and Drug Administration. 42 ADDITIONAL INFORMATION This test was developed and its performance characteristics determined by [facility] in a manner consistent with CLIA requirements. This test has not been cleared or approved by the U.S. Food and Drug Administration. 43 ADDITIONAL INFORMATION This test was developed and its performance characteristics determined by [facility] in a manner consistent with CLIA requirements. This test has not been cleared or approved by the U.S. Food and Drug Administration. 44 ADDITIONAL INFORMATION This test was developed and its performance characteristics determined by [facility] in a manner consistent with CLIA requirements. This test has not been cleared or approved by the U.S. Food and Drug Administration. 45 ADDITIONAL INFORMATION This test was developed and its performance characteristics determined by [facility] in a manner consistent with CLIA requirements. This test has not been cleared or approved by the U.S. Food and Drug Administration. 46 ADDITIONAL INFORMATION This test was developed and its performance characteristics determined by [facility] in a manner consistent with CLIA requirements. This test has not been cleared or approved by the U.S. Food and Drug Administration. 47 ADDITIONAL INFORMATION This test was developed and its performance characteristics determined by [facility] in a manner consistent with CLIA requirements. This test has not been cleared or approved by the U.S. Food and Drug Administration. 48 Due to reagent unavailability, ARBI: Acetylcholine Receptor (Muscle AChR) Binding Antibody, Serum, will not be performed at [facility]. If Acetylcholine Receptor Binding Antibody testing is desired, please order FABAB: Acetylcholine Receptor Binding Antibody, which is performed at another laboratory. Given the differences in assay methodologies, direct comparison of quantitative results is not possible. Interpretation of these results should be made within the clinical context. If any concerns arise, laboratory consultation in regards to these results is available by calling . ADDITIONAL INFORMATION This test was developed and its performance characteristics determined by [facility] in a manner consistent with CLIA requirements. This test has not been cleared or approved by the U.S. Food and Drug Administration. 49 ADDITIONAL INFORMATION This test was developed and its performance characteristics determined by [facility] in a manner consistent with CLIA requirements. This test has not been cleared or approved by the U.S. Food and Drug Administration. 50 ADDITIONAL INFORMATION This test was developed and its performance characteristics determined by [facility] in a manner consistent with CLIA requirements. This test has not been cleared or approved by the U.S. Food and Drug Administration. Test Performed by: [facility] - [address] [address] 51 [facility] Factor VIII Activity Assay, P was cancelled on 06/22/2018 at 15:13; Unable to perform Test Add on Request. Test Performed by: [facility] - [facility] [address] [place] [address] 52 REFERENCE VALUE <=13 (Fasting) ADDITIONAL INFORMATION This test was developed and its performance characteristics determined by [facility] in a manner consistent with CLIA requirements. This test has not been cleared or approved by the U.S. Food and Drug Administration. Test Performed by: [facility] - [address] [address] 53 ADDITIONAL INFORMATION This test has been modified from the graphic coordinator's instructions. Its performance characteristics were determined by [facility] in a manner consistent with CLIA requirements. This test has not been cleared or approved by the U.S. Food and Drug Administration. Test Performed by: [facility] - [address] [address] 54 Direct factor Xa inhibitor therapy (rivaroxaban (Xarelto), apixaban (Eliquis), edoxaban (Savaysa)) may interfere with the functional Xa based AT assay and cause an overestimation of AT activity thus potentially masking diagnosis of AT deficiency. Suggest clinical correlation and consider repeat AT testing remote from direct factor Xa inhibitor therapy, if clinically indicated. ADDITIONAL INFORMATION This test has been modified from the graphic coordinator's instructions. Its performance characteristics were determined by [facility] in a manner consistent with CLIA requirements. This test has not been cleared or approved by the U.S. Food and Drug Administration. Test Performed by: [facility] - [facility] [address] [place] [address] 55 ADDITIONAL INFORMATION This test has been modified from the graphic coordinator's instructions. Its performance characteristics were determined by [facility] in a manner consistent with CLIA requirements. This test has not been cleared or approved by the U.S. Food and Drug Administration. Test Performed by: [facility] - [address] [address] 56 Anticoagulants (for example oral direct thrombin inhibitors like dabigatran, anti-Xa inhibitors like rivaroxaban, apixaban or edoxaban), heparin levels greater than 1 U/mL, inhibitors of the APTT test system (for example lupus anticoagulant), inhibitors of bovine factor V (for example antibodies that may arise in patients treated with certain bovine topical thrombin preparations) may produce a falsely normal or elevated protein S activity result. Suggest clinical correlation and if indicated consider repeat assay of protein S activity and/or antigen in the absence of anticoagulation therapy. ADDITIONAL INFORMATION This test has been modified from the graphic coordinator's instructions. Its performance characteristics were determined by [facility] in a manner consistent with CLIA requirements. This test has not been cleared or approved by the U.S. Food and Drug Administration. Test Performed by: [facility] - [address] [address] 57 REFERENCE VALUE 10.3 - 12.8 58 No evidence of a lupus-like anticoagulant based on results of Prothrombin Time (PT), Activated Partial Thromboplastin Time (APTT), and Dilute Russells Viper Venom Time (DRVVT). Interpretation not reviewed by physician. Test Performed by: [facility] - [address] [address] 59 This individual DOES have the factor V Leiden (R506Q) mutation on ONE allele, (heterozygous carrier). The factor V Leiden (R506Q) mutation is a risk factor for venous thromboembolism. The individual may have other genetic and environmental risk factors for thrombosis. Consider genetic consultation and counseling of potentially affected family members regarding laboratory testing. ADDITIONAL INFORMATION This test is a direct mutation analysis using PCR amplification, signal generation and release by cleavage of sequence specific alleles ([employer], [employer], [place], [place]). This test has been modified from the graphic coordinator's instructions. Its performance characteristics were determined by [facility] in a manner consistent with CLIA requirements. This test has not been cleared or approved by the U.S. Food and Drug Administration. 60 RESULT: Stefano Higgins M.D., Ph.D. 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 The Prothrombin [id number] mutation is a risk factor for venous thromboembolism. The individual may have other genetic and environmental risk factors for thrombosis. Consider genetic consultation and counseling of potentially affected family members regarding laboratory testing. ADDITIONAL INFORMATION This test is a direct mutation analysis using PCR amplification, signal generation and release by cleavage of sequence specific alleles ([employer], [employer], [place], [place]). This test has been modified from the graphic coordinator's instructions. Its performance characteristics were determined by [facility] in a manner consistent with CLIA requirements. This test has not been cleared or approved by the U.S. Food and Drug Administration. 63 RESULT: Stefano Higigns M.D., Ph.D. Test Performed by: [place] [address] 64 inr-1.7 PT 20.8 65 Serum levels of PSA measured using the [employer] DXI Hybritech immunoassay should not be interpreted as absolute evidence of the presence or absence of disease. The PSA value should be used in conjunction with other pertinent clinical diagnostic procedures. The values obtained with different assay methods or kits cannot be used interchangeably. 66 Desirable <150 Borderline high 150-199 High 200-499 Very High >500 67 Desirable <200 Borderline high 200-239 High >239 68 Low <40 Desirable: 40-60 High: >60 69 Desirable: <100 mg/dL Near Optimal: 100-129 mg/dL Borderline High: 130-159 mg/dL High: 160-189 mg/dL Very High: >189 mg/dL 70 Because ethnic data is not always readily available, this report includes an eGFR for both -Americans and non- Americans. The National Kidney Disease Education Program (NKDEP) does not endorse the use of the MDRD equation for patients that are not between the ages of 18 and 70, are , have extremes of body size, muscle mass, or nutritional status, or are non- or non-. According to the National Kidney Foundation, irrespective of diagnosis, the stage of the disease is based on the level of kidney function: Stage Description GFR(mL/min/1.73 m(2)) 1 Kidney damage with normal or decreased GFR 90 2 Kidney damage with mild decrease in GFR 60-89 3 Moderate decrease in GFR 30-59 4 Severe decrease in GFR 15-29 5 Kidney failure <15 (or dialysis) Encounters Type Date Location Provider Dx Diagnosis Office Visit 06/01/2018 [facility] Internal Martinez Z79.01 [facility] (current) 8:20a Medicine - [address]ven use of anticoagulants R Z86.718 Personal history of other venous thrombosis and embolism Z13.220 Encounter for screening for lipoid disorders Z13.1 Encounter for screening for diabetes mellitus Office Visit 09/06/2016 11:00a [facility] Internal Rick Moffett Z79.01 [facility] (current) Medicine - CULIN[facility] SPECIALIST use of Suite [address] anticoagulants Z86.718 Personal history of other venous thrombosis and embolism Office Visit 07/08/2016 11:20a [facility] Internal Martinez Craven, Z00.00 Encntr for Luis - Rudy general adult [address] medical exam w/o abnormal findings Z79.01 manager long term care (current) use of anticoagulants Z86.718 Personal history of other venous thrombosis and embolism Z12.5 Encounter for screening for malignant neoplasm of prostate Z13.220 Encounter for screening for lipoid disorders Z13.1 Encounter for screening for diabetes mellitus Z23 Encounter for immunization Office Visit 06/21/2016 10:00a [facility] Internal Nurse Visit I82.5Z3 [facility] - [address] [facility] uns R deep veins of dist low extrm, bi I82.532 Chronic embolism and thrombosis of left popliteal vein Office Visit 06/15/2016 2:00p [facility] Internal Martinez Craven, I82.5Z3 [facility] - [facility] [address] deep veins of dist low extrm, bi I82.532 Chronic embolism and thrombosis of left popliteal vein Plan of Treatment 06/01/2018 - Martinez Craven M.D.Z79.01 manager long term care (current) use of anticoagulantsNew Medication:Warfarin Sodium 7.5 mg - 1 tab daily or as directed by mdComments:Will review old records and discontinue coumadinFollow up :2 m/lwlbctcwB04.718 Personal history of other venous thrombosis and tfxkaplfD13.220 Encounter for screening for lipoid disordersComments:Change to Warfarin to 7.5 mg daily and recheck in a week. Script sent for 7.5 mg daily. To take warfarin always hzxvyydP89.1 Encounter for screening for diabetes mellitus
[2019-04-30 08:46] LABS: C Reactive Protein 95.92 mg/L (<8.01); Uric Acid 4.8 mg/dL (4.4-7.6)
[2019-04-30 09:15] LABS: Albumin 3.4 g/dL (3.2-5.2); Calcium 8.5 mg/dL (8.6-10.3); Potassium 3.5 mmol/L (3.5-5.0); Total Bilirubin 0.7 mg/dL (0.2-1.0)
[2019-04-30 09:21] LABS: Albumin/Globulin Ratio 1.5 (1-3); BUN/Creatinine Ratio 56.5 (8-20); EGFR Non-African American 190.1 (>60); Globulin 2.3 g/dL (2-4); Total Protein 5.7 g/dL (6.4-8.9)
[2019-04-30] MEDS ORDERED: NS 0.9% 1000 ML** 1,000 ML IV ONE (09:35)
[2019-04-30 10:20] LABS: Urine Appearance Clear; Urine Bacteria Absent (Absent); Urine Bilirubin Negative (Negative); Urine Blood Negative (Negative); Urine Color Yellow; Urine Glucose Negative (Negative); Urine Ketones Trace (Negative); Urine Nitrite Negative (Negative); Urine Protein Negative (Negative); Urine Red Blood Cell Trace(0-2/hpf) (Absent); Urine Squamous Epithelial Cell Present (Absent); Urine Urobilinogen Positive (Negative); Urine White Blood Cell 3+(>20/hpf) (Absent)
[2019-04-30] MEDS ORDERED: Acetaminophen TAB* 325 MG PO ONE (12:10)
[2019-04-30 12:14] LABS: Hematocrit 18 % (42-52); Hemoglobin 6.3 g/dL (14.0-18.0)
[2019-04-30] MEDS ORDERED: Phytonadione SUBCUT/IM Adult* 10 MG/ML AMP (IM or SQ not preferred route) IM ONE (12:25)
[2019-04-30 13:00] LABS: Hematocrit 20 % (42-52)
[2019-04-30] MEDS ORDERED: Phytonadione 10 mg in 50 mL NS over 30 min IV ONE (13:00)
[2019-04-30 16:23] VITALS: BP 110/74
== END 2019-04-30 16:22 | disposition home or self-care (01) ==
LOC: ED 07:30
DX: S80.12XA Contusion of left lower leg, initial encounter (principal); D64.9 Anemia, unspecified; V19.9XXA Pedal cyclist (driver) (passenger) injured in unspecified traffic accident, initial encounter; Y93.55 Activity, bike riding; I10 Essential (primary) hypertension; F17.210 Nicotine dependence, cigarettes, uncomplicated; Z86.718 Personal history of other venous thrombosis and embolism; Z79.01 Long term (current) use of anticoagulants; Z88.0 Allergy status to penicillin; Z88.8 Allergy status to other drugs, medicaments and biological substances
CPT/HCPCS: 36415; 80053; 81003; 81015; 84550; 85014; 85018; 85025; 85610; 86140; 86850; 86900; 86901; 86922; 87086; 93005; 96361; 96365; 96372; 99285; A9270-GY; J3430; P9040

== ENCOUNTER 2019-05-06 19:02 | Emergency (ER) | payer OTHER ==
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
--- OUTSIDE RECORDS SUMMARY | 2019-05-06 20:03 | XMS REPORT | Continuity of Care Document ---
:1965 External Reference #:[id number] Author Name Candice Petersen Care Team Providers Name Role Phone Yani Do MD Primary Care Physician Unavailable Payers Date Identification Numbers Payment Provider Subscriber Effective: Policy Number: [id number] Everton Nicole 2018 PayID: [id number] [address] [place] [address] Expires: 2018 Policy Number: [id number] Everton Nicole Group Name: [id number] [address] PayID: [id number] [place] [address] Expires: 2016 Policy Number: [id number] Medicaid Melissa Nicole Group Name: [id number] [address] PayID: [id number] [place] [address] Problems Active Problems Provider Date History of thromboembolism of vein Martinez Craven M.D. Onset: 07/08/2016 Social History Type Date Description Comments Sex Unknown Tobacco Use Start: Unknown Heavy tobacco smoker (more than 10 cigarettes/day) Tobacco Use Start: Unknown End: Unknown Patient is a former smoker Smoking Status Reviewed: 05/02/19 Patient is a former smoker Allergies, Adverse [...] use as directed 1units Martinez Craven, 01/10/2017 [facility] [place] History Medications Warfarin Sodium Take By [...] CPT Code Status Date Vaccine Lot # [id number] Given 07/08/2016 Pneumococcal Conjugate Vaccine 13 Valent For [id number] Intramuscular Use Vital Signs Date Vital Result Comment 05/02/2019 11:07am Height 67 inches 5'7" Weight 135.00 lb Heart Rate 90 /min BP Systolic Sitting 127 mmHg BP Diastolic Sitting 79 mmHg Body Temperature 99.2 F O2 % BldC Oximetry 98 % BMI (Body Mass Index) 21.1 kg/m2 06/01/2018 8:10am Height 67 inches 5'7" Weight [...] Result H/L Range Note Protime W/ Inr 04/19/2019 [facility] Prothrombin Time 29.2 Inr 2.4 Protime W/ Inr 04/11/2019 [facility] Prothrombin Time 26.6 Inr 2.0 Protime W/ Inr 12/07/2018 [facility] Prothrombin Time 65.8 Inr 5.3 Protime W/ Inr 11/23/2018 [facility] Prothrombin Time 45.5 Inr 3.7 Protime W/ Inr 11/01/2018 [facility] Prothrombin Time 50.5 Inr 4.1 Laboratory test 09/29/2018 [facility] Rapid SEE RESULT [address] [place] [address] Antigen [phone] Rapid Influenza 09/29/2018 [facility] Influenza A NEGATIVE Negative 2 A & B Molecular [address] [place] [address] [phone] Influenza B Molecular NEGATIVE Negative Urine Culture And 09/29/2018 [facility] Urine Culture SEE RESULT [address] [place] [address] [phone] CBC Auto Diff 09/29/2018 [facility] White Blood 8.0 10^3/uL N 3.5-[address] Count .8 [place], [place] [id number] [phone] Red Blood Count 4.71 10^6/uL N 4.00-5.40 [...] Red Blood Cells % 0 Inr/Protime 09/29/2018 [facility] Inr 1.97 High 0.77-1.02 [address] [place] [address] [phone] Laboratory test 09/29/2018 [facility] Partial 40.7 High 26.0- 36.3 finding 101 [facility] [place] [address] Time PTT [phone] Urinalysis 09/29/2018 [facility] Urine Color Sammi Profile [address] [place] [address] [phone] Urine Appearance Clear Urine Specific [place] 1.027 N 1.010-1.030 Urine pH 7.0 N [...] Abnormal Absent Urine Yeast Present Abnormal Absent Laboratory test 09/29/2018 [facility] Troponin-I (TnI) 0.00 ng/ mL <0.04 [address] [place] [address] [phone] Comp Metabolic 09/29/2018 [facility] Sodium 138 mmol/L N 135- 145 Panel [address] [place] [address] [phone] Potassium 4.1 mmol/L N 3.5-5.0 Chloride 102 [...] 127.4 >60 5 Protime W/ Inr 08/15/2018 [facility] Prothrombin Time 34.3 Inr 2.8 Protime W/ Inr 07/27/2018 [facility] Prothrombin Time 46.0 Inr 3.8 Protime W/ Inr 07/18/2018 [facility] Prothrombin Time 31.7 Inr 2.6 Protime W/ Inr 07/11/2018 [facility] Prothrombin Time 12.1 Inr 1.0 Laboratory test 06/19/2018 [facility] Lgi1-IgG Cba, Negative Negative [address] [place] [address] [phone] Caspr2-IgG Cba,S Negative Negative 7 Paraneoplastic 06/19/2018 [facility] Paraneoplastic Ab See Comment [address] [place] [address] [phone] Anti-Neuronal Nuclear Ab Type1 Negative titer <1:240 [...] 0.07 nmol/L Abnormal <=0.02 23 Laboratory 06/19/2018 [facility] RBC 53.8 U/gHb [address] [place] [address] [phone] Factor II 06/19/2018 [facility] Prothrombin Heterozygous 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 (Prothrombi [address] [address] Mutation n) [place] [address] [phone] Prothrombin [id number] Interp See Comment 25 Prothrombin Mutation Review By See Comment 26 Factor 5 06/19/2018 [facility] Factor V Heterozygous 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 Leiden [address] [place] [address] Mutation [phone] Factor V Leiden Interpretation See Comment 27 Factor V Leiden Reviewed By See Comment 28 Laboratory test 06/19/2018 [facility] Protein S 113 % 65 - [address] Activity 160 [place], [place] [address] [phone] Lupus 06/19/2018 [facility] Prothrombin 10.0 Abnormal 30 Anticoagulant AB [address] Time(Lac) sec [place], [place] [address] [phone] Lac Inr 0.9 Lac Aptt 31 sec 26 - 36 Lac DRVVT Screen Ratio 0.7 ratio 0.0 - 1.1 Lupus Anticoagulant Interpreta See Comment 31 Laboratory test 06/19/2018 [facility] Protein C 94 % 70 - 150 [address] [place] [address] [phone] Anti Thrombin III Activity 86 % 80 - 130 33 Protein S Antigen 142 % 65 - 160 34 Laboratory test 06/19/2018 [facility] Factor 8 Activity TNP ( ) [address] [place], [place] [address] [phone] Homocysteine 13 mcmol/L 36 Laboratory test 06/19/2018 [facility] Protein C 94 % 70 - 150 [address] [place] [address] [phone] Anti Thrombin III Activity 86 % 80 - 130 38 Protein S Antigen 142 % 65 - 160 39 Lupus 06/19/2018 [facility] Prothrombin 10.0 sec Abnormal 40 Anticoagulant AB [address] Time([place]) [place] [address] [phone] Lac Inr 0.9 Lac Aptt 31 sec 26 - 36 Lac DRVVT Screen Ratio 0.7 ratio 0.0 - 1.1 Lupus Anticoagulant Interpreta See Comment 41 Paraneoplastic 06/19/2018 [facility] Paraneoplastic Ab See Comment [address] [place] [address] [phone] Anti-Neuronal Nuclear Ab Type1 Negative titer <1:240 Reflex Added None. 43 Anti-Neuronal Nuclear Ab Type2 Negative titer <1:240 44 Anti-Neuronal Nuclear Ab Type3 Negative titer <1:240 45 Anti-Glial/Neuronal Nuc Ab-1 A Negative titer <1:240 46 Purkinje Cell Cytoplasm Type 1 Negative titer <1:240 47 Purkinje Cell Cytoplasm Type 2 Negative titer <1:240 48 Purkinje Cell Cytoplasm Typ Tr Negative titer <1:240 49 Amphiphysin Antibody Negative titer <1:240 50 CRMP-5 IgG Antibody Negative titer <1:240 51 Anti-Striated Muscle Antibody Negative titer <1:120 52 Calcium Channel Binding Ab P/Q 0.00 nmol/L <=0.02 53 N Type Calcium Channel Binding 0.00 nmol/L <=0.03 54 ACh Receptor Muscle Binding Ab See Comment nmol/L <=0.02 55 AChR Ganglionic Neuronal Ab 0.00 nmol/L <=0.02 56 Voltage-Gated Potassium Chann 0.07 nmol/L Abnormal <=0.02 57 Laboratory 06/19/2018 [facility] RBC 53.8 U/gHb [address] [place] [address] [phone] Laboratory 06/19/2018 [facility] Protein S 113 % 65 - 160 [address] [place] [place] [address] [phone] Factor 5 06/19/2018 [facility] Factor V Leiden Heterozygous 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 Leiden [address] [place] [place] [address] [phone] Factor V Leiden Interpretation See Comment 60 Factor V Leiden Reviewed By See Comment 61 Factor II 06/19/2018 [facility] Prothrombin Heterozygous 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 (Prothrombin) [address] [place] [address] Mutation [phone] Prothrombin [id number] Interp See Comment 62 Prothrombin Mutation Review By See Comment 63 Protime W/ Inr 06/01/2018 [facility] Prothrombin Time 19.4 Inr 1.6 Protime W/ Inr 05/11/2018 [facility] Prothrombin Time 24.5 Inr 2.0 Protime W/ Inr 04/13/2018 [facility] Prothrombin Time 24.6 Inr 2.0 Protime W/ Inr 03/15/2018 [facility] Prothrombin Time 35.7 Inr 2.9 Protime W/ Inr 03/08/2018 [facility] Prothrombin Time 16.0 Inr 1.3 Protime W/ Inr 02/07/2018 [facility] Prothrombin Time 35.6 Inr 2.9 Protime W/ Inr 01/20/2018 [facility] Prothrombin Time 29.0 Inr 2.4 Protime W/ Inr 01/05/2018 [facility] Prothrombin Time 40.9 Inr 3.3 Protime W/ Inr 12/22/2017 [facility] Prothrombin Time 29.2 Inr 2.4 Protime W/ Inr 12/15/2017 [facility] Prothrombin Time 45.8 Inr 3.7 Protime W/ Inr 12/01/2017 [facility] Prothrombin Time 29.7 Inr 2.4 Protime W/ Inr 11/23/2017 [facility] Prothrombin Time 51.1 Inr 4.1 Protime W/ Inr 11/09/2017 [facility] Prothrombin Time 31.3 Inr 2.6 Protime W/ Inr 11/02/2017 [facility] Prothrombin Time 47.5 Inr 3.9 Protime W/ Inr 09/28/2017 [facility] Prothrombin Time 29.4 Inr 2.4 Protime W/ Inr 08/31/2017 [facility] Prothrombin Time 35.1 Inr 2.9 Protime W/ Inr 08/01/2017 [facility] Prothrombin Time 36.1 Inr 3.0 Protime W/ Inr 07/06/2017 [facility] Prothrombin Time 32.2 Inr 2.6 Protime W/ Inr 06/22/2017 [facility] Prothrombin Time 21.4 Inr 1.8 Protime W/ Inr 05/23/2017 [facility] Prothrombin Time 33.6 Inr 2.7 Protime W/ Inr 05/09/2017 [facility] Prothrombin Time 25.1 Inr 2.1 Protime W/ Inr 05/02/2017 [facility] Prothrombin Time 23.7 Inr 1.9 Protime W/ Inr 04/22/2017 [facility] Prothrombin Time 20.8 64 Inr 1.7 Protime W/ Inr 04/06/2017 [facility] Prothrombin Time 34.8 Inr 2.8 Protime W/ Inr 03/30/2017 [facility] Prothrombin Time 23.6 Inr 1.9 Protime W/ Inr 03/23/2017 [facility] Prothrombin Time 23.8 Inr 2.0 Protime W/ Inr 03/02/2017 [facility] Prothrombin Time 29.0 Inr 2.4 Protime W/ Inr 02/23/2017 [facility] Prothrombin Time 20.0 Inr 1.6 Protime W/ Inr 02/08/2017 [facility] Prothrombin Time 20.9 Inr 1.7 Protime W/ Inr 01/25/2017 [facility] Prothrombin Time 28.2 Inr 2.3 Protime W/ Inr 01/18/2017 [facility] Prothrombin Time 19.5 Inr 1.6 Protime W/ Inr 01/10/2017 [facility] Prothrombin Time 26.8 Inr 2.2 Protime W/ Inr 12/31/2016 [facility] Prothrombin Time 16.6 Inr 1.4 Inr/Protime 12/24/2016 [facility] Inr 2.28 High 0.89-1.[address] [place] [address] [phone] Inr/Protime 11/17/2016 [facility] Inr 2.79 High 0.89-1.[address] [place] [address] [phone] Protime W/ Inr 10/29/2016 [facility] Inr 3.69 High 0.89-1.[address] [place] [address] [phone] Protime W/ Inr 10/21/2016 [facility] Inr 1.61 High 0.89-1.[address] [place] [address] [phone] Protime W/ Inr 10/14/2016 [facility] Prothrombin Time 19.6 Inr 1.6 Protime W/ Inr 09/29/2016 [facility] Prothrombin Time 36.4 Inr 3.0 Protime W/ Inr 09/22/2016 [facility] Prothrombin Time 48.0 Inr 4.0 Protime W/ Inr 09/13/2016 [facility] Prothrombin Time 29.8 Inr 2.5 Protime W/ Inr 09/06/2016 [facility] Prothrombin Time 48.0 Inr 4.0 Laboratory test 09/04/2016 [facility] PSA Screening 1.641 ng/mL N 0-4.000 65 finding [address] [place] [address] [phone] Lipid Profile 09/04/2016 [facility] Triglycerides 60 mg/dL N 66 (Trig/Chol/HDL) [address] [place] [address] [phone] Cholesterol 178 mg/dL N 67 HDL Cholesterol 68.0 mg/dL N 68 LDL Cholesterol 98 mg/dL N 69 Comp Metabolic Panel 09/04/2016 [facility] Sodium 136 mmol/L N 133-145 [address] [place] [address] [phone] Potassium 4.3 mmol/L N 3.5-5.0 Chloride 103 [...] N >60 70 Protime W/ Inr 08/05/2016 [facility] Prothrombin Time 28.8 Inr 2.4 Protime W/ Inr 07/29/2016 [facility] Prothrombin Time 31.2 Inr 2.6 Protime W/ Inr 07/22/2016 [facility] Prothrombin Time 20.6 Inr 1.7 Protime W/ Inr 07/08/2016 [facility] Prothrombin Time 30.2 Inr 2.5 Protime W/ Inr 07/01/2016 [facility] Prothrombin Time 16.2 Inr 1.3 Protime W/ Inr 06/28/2016 [facility] Prothrombin Time 25 Inr 2.1 Protime W/ Inr 06/24/2016 [facility] Prothrombin Time 12.7 Inr 1.1 1 SEE RESULT BELOW Name: MELISSA NICOLE : [address]: Tarun Thomas MD Acct: [id number] Unit: [id number] AGE: 53 Location: ED Re09/29/18 SEX: M Status: REG ER SPEC: [id number] LAITH: 09/29/[address] [facility] [address]: Tarun Thomas MD REQ: [id number] RECD: 09/29/18 STATUS: ELIEL BURNETT DR: Martinez Craven MD _ SOURCE: NASAL SPDESC: ORDERED: Flu A B Request Procedure Result Reported Site Rapid Influenza A B Request Final 09/29/18- 2054 ML Specimen received for Influenza A/B Molecular testing * ML - Main Lab . END OF REPORT DEPARTMENT OF PATHOLOGY, [address] [place] [address] Sixto Medina M.D. Director [facility] # [id number] 2 Telecom Analyst: [id number] 3 SEE RESULT BELOW Name: MELISSA NICOLE : [address]: Tarun Thomas MD Acct: [id number] Unit: [id number] AGE: 53 Location: ED Re09/29/18 SEX: M Status: DEP ER SPEC: [id number] LAITH: 09/29/[address]: Tarun Thomas MD REQ: [id number] RECD: 09/29/18 STATUS: COMP LEX DR: Martinez Craven MD _ SOURCE: URINE SPDESC: ORDERED: Urine Culture Procedure Result Reported Site Urine Culture Final 09/30/18- 1711 ML No Growth (<1,000 CFU/mL) * ML - Main Lab . END OF REPORT DEPARTMENT OF PATHOLOGY, [address] [place] [address] Sixto Medina M.D. Director [facility] # [id number] 4 Troponin-I testing on Plasma Separator Tubes [...] developed and its performance characteristics determined by [facility] in a manner consistent with CLIA requirements. This test has not been cleared or approved by the U.S. Food and Drug Administration. Test Performed by: [facility] - [address] [address] 7 ADDITIONAL INFORMATION This test was developed and its performance characteristics determined by [facility] in a manner consistent with CLIA requirements. This test has not been cleared or approved by the U.S. Food and Drug Administration. Test Performed by: [address] [address] 8 Reflexed test(s) performed per testing algorithm. * Part of this testing algorithm includes [facility]' ARBI: Acetylcholine Receptor (Muscle AChR) Binding Antibody, [...] LGI1 and Caspr2 antibodies. Neurology, 2016; 86; 9525-6543. * Garfield B, Urban M, Saranya T, Dontrell I, Jacki S, Migel C, Jaden W, Kareen C, Kalyan C, Rocky M, Diann P, Sam L, Pasquale J, Duke A, Graeme P, Aamir S. Intracellular and non-neuronal targets of voltage-gated potassium channel complex antibodies. JNNP, March 02 2017. * 9 ADDITIONAL INFORMATION This test was developed and its performance characteristics determined by [facility] in a manner consistent with CLIA requirements. This test has not been cleared or approved by the U.S. Food and Drug Administration. 10 ADDITIONAL INFORMATION This test was developed and its performance characteristics determined by [facility] in a manner consistent with CLIA requirements. This test has not been cleared or approved by the U.S. Food and Drug Administration. 11 ADDITIONAL INFORMATION This test was developed and its performance characteristics determined by [facility] in a manner consistent with CLIA requirements. This test has not been cleared or approved by the U.S. Food and Drug Administration. 12 ADDITIONAL INFORMATION This test was developed and its performance characteristics determined by [facility] in a manner consistent with CLIA requirements. This test has not been cleared or approved by the U.S. Food and Drug Administration. 13 ADDITIONAL INFORMATION This test was developed and its performance characteristics determined by [facility] in a manner consistent with CLIA requirements. This test has not been cleared or approved by the U.S. Food and Drug Administration. 14 ADDITIONAL INFORMATION This test was developed and its performance characteristics determined by [facility] in a manner consistent with CLIA requirements. This test has not been cleared or approved by the U.S. Food and Drug Administration. 15 ADDITIONAL INFORMATION This test was developed and its performance characteristics determined by [facility] in a manner consistent with CLIA requirements. This test has not been cleared or approved by the U.S. Food and Drug Administration. 16 ADDITIONAL INFORMATION This test was developed and its performance characteristics determined by [facility] in a manner consistent with CLIA requirements. This test has not been cleared or approved by the U.S. Food and Drug Administration. 17 ADDITIONAL INFORMATION This test was developed and its performance characteristics determined by [facility] in a manner consistent with CLIA requirements. This test has not been cleared or approved by the U.S. Food and Drug Administration. 18 ADDITIONAL INFORMATION This test was developed and its performance characteristics determined by [facility] in a manner consistent with CLIA requirements. This test has not been cleared or approved by the U.S. Food and Drug Administration. 19 ADDITIONAL INFORMATION This test was developed and its performance characteristics determined by [facility] in a manner consistent with CLIA requirements. This test has not been cleared or approved by the U.S. Food and Drug Administration. 20 ADDITIONAL INFORMATION This test was developed and its performance characteristics determined by [facility] in a manner consistent with CLIA requirements. This test has not been cleared or approved by the U.S. Food and Drug Administration. 21 Due to reagent unavailability, ARBI: Acetylcholine Receptor (Muscle AChR) Binding Antibody, Serum, will not be performed at [facility] [employer]. If Acetylcholine Receptor Binding Antibody testing is [...] developed and its performance characteristics determined by [facility] in a manner consistent with CLIA requirements. This test has not been cleared or approved by the U.S. Food and Drug Administration. 22 ADDITIONAL INFORMATION This test was developed and its performance characteristics determined by [facility] in a manner consistent with CLIA requirements. This test has not been cleared or approved by the U.S. Food and Drug Administration. 23 ADDITIONAL INFORMATION This test was developed and its performance characteristics determined by [facility] in a manner consistent with CLIA requirements. This test has not been cleared or approved by the U.S. Food and Drug Administration. 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 The Prothrombin [id number] mutation is a risk factor for venous thromboembolism. The individual may have other genetic and environmental risk factors for thrombosis. Consider genetic consultation and counseling of potentially affected family members regarding laboratory testing. ADDITIONAL INFORMATION This test is a direct mutation analysis using PCR amplification, signal generation and release by cleavage of sequence specific alleles ([employer], [employer], [place], [place]). This test has been modified from the concrete block layer's instructions. Its performance characteristics were determined by [facility] in a manner consistent with CLIA requirements. This test has not been cleared or approved by the U.S. Food and Drug Administration. 26 RESULT: Stefano Higgins M.D., Ph.D. Test Performed by: [facility] [place] [address] 27 This individual DOES have the factor [...] of sequence specific alleles ([employer], [employer], [place], [place]). This test has been modified from the concrete block layer's instructions. Its performance characteristics were determined by [facility] in a manner consistent with CLIA requirements. This test has not been cleared or approved by the U.S. Food and Drug Administration. 28 RESULT: Stefano Higgins M.D., Ph.D. Test Performed by: [address] [address] 29 Anticoagulants (for example oral direct thrombin [...] This test has been modified from the concrete block layer's instructions. Its performance characteristics were determined by [facility] in a manner consistent with CLIA requirements. This test has not been cleared or approved by the U.S. Food and Drug Administration. Test Performed by: [facility] - [address] [address] 30 REFERENCE VALUE 10.3 - 12.8 31 No evidence of a lupus-like anticoagulant based on results of Prothrombin Time (PT), Activated Partial Thromboplastin Time (APTT), and Dilute Russells Viper Venom Time (DRVVT). Interpretation not reviewed by physician. Test Performed by: [facility] - [address] [address] 32 ADDITIONAL INFORMATION This test has been modified from the concrete block layer's instructions. Its performance characteristics were determined by [facility] in a manner consistent with CLIA requirements. This test has not been cleared or approved by the U.S. Food and Drug Administration. Test Performed by: [facility] - [address] [address] 33 Direct factor Xa inhibitor therapy (rivaroxaban (Xarelto), apixaban (Eliquis), edoxaban (Savaysa)) may interfere with the functional Xa based AT assay and cause an overestimation of AT activity thus potentially masking diagnosis of AT deficiency. Suggest clinical correlation and consider repeat AT testing remote from direct factor Xa inhibitor therapy, if clinically indicated. ADDITIONAL INFORMATION This test has been modified from the concrete block layer's instructions. Its performance characteristics were determined by [facility] in a manner consistent with CLIA requirements. This test has not been cleared or approved by the U.S. Food and Drug Administration. Test Performed by: [facility] - [address] [address] 34 ADDITIONAL INFORMATION This test has been modified from the concrete block layer's instructions. Its performance characteristics were determined by [facility] in a manner consistent with CLIA requirements. This test has not been cleared or approved by the U.S. Food and Drug Administration. Test Performed by: [address] [address] 35 Coa Factor VIII Activity Assay, P was cancelled on 06/22/2018 at 15:13; Unable to perform Test Add on Request. Test Performed by: [facility] - [address] [address] 36 REFERENCE VALUE <=13 (Fasting) ADDITIONAL INFORMATION This test was developed and its performance characteristics determined by [facility] in a manner consistent with CLIA requirements. This test has not been cleared or approved by the U.S. Food and Drug Administration. Test Performed by: [facility] - [address] [address] 37 ADDITIONAL INFORMATION This test has been modified from the concrete block layer's instructions. Its performance characteristics were determined by [facility] in a manner consistent with CLIA requirements. This test has not been cleared or approved by the U.S. Food and Drug Administration. Test Performed by: [address] [address] 38 Direct factor Xa inhibitor therapy (rivaroxaban (Xarelto), apixaban (Eliquis), edoxaban (Savaysa)) may interfere with the functional Xa based AT assay and cause an overestimation of AT activity thus potentially masking diagnosis of AT deficiency. Suggest clinical correlation and consider repeat AT testing remote from direct factor Xa inhibitor therapy, if clinically indicated. ADDITIONAL INFORMATION This test has been modified from the concrete block layer's instructions. Its performance characteristics were determined by [facility] in a manner consistent with CLIA requirements. This test has not been cleared or approved by the U.S. Food and Drug Administration. Test Performed by: [facility] - [address] [address] 39 ADDITIONAL INFORMATION This test has been modified from the concrete block layer's instructions. Its performance characteristics were determined by [facility] in a manner consistent with CLIA requirements. This test has not been cleared or approved by the U.S. Food and Drug Administration. Test Performed by: [facility] [address] [place] [address] 40 REFERENCE VALUE 10.3 - 12.8 41 No evidence of a lupus-like anticoagulant based on results of Prothrombin Time (PT), Activated Partial Thromboplastin Time (APTT), and Dilute Russells Viper Venom Time (DRVVT). Interpretation not reviewed by physician. Test Performed by: [facility] [address] [place] [address] 42 Reflexed test(s) performed per testing algorithm. * Part of this testing algorithm includes [facility]' ARBI: Acetylcholine Receptor (Muscle AChR) Binding Antibody, [...] S, Anai M, Glenis E, Caden RH, Nenitajs R, Sallie P, Sillevis S, Tithelenr M. The relevance of VGKC positivity in the absence of LGI1 and Caspr2 antibodies. Neurology, 2016; 86; 7890-3600. * Garfield B, Urban M, Saranya T, Dontrell I, Mindmarely S, Migel C, Jaden W, Kareen C, Kalyan C, Rocky M, Diann P, Sam L, Pasquale J, Duke A, Graeme P, Aamir S. Intracellular and non-neuronal targets of voltage-gated potassium channel complex antibodies. JNNP, Mar 02 2017. * 43 ADDITIONAL INFORMATION This test was developed and its performance characteristics determined by [facility] in a manner consistent with CLIA requirements. This test has not been cleared or approved by the U.S. Food and Drug Administration. 44 ADDITIONAL INFORMATION This test was developed and its performance characteristics determined by [facility] in a manner consistent with CLIA requirements. This test has not been cleared or approved by the U.S. Food and Drug Administration. 45 ADDITIONAL INFORMATION This test was developed and its performance characteristics determined by [facility] in a manner consistent with CLIA requirements. This test has not been cleared or approved by the U.S. Food and Drug Administration. 46 ADDITIONAL INFORMATION This test was developed and its performance characteristics determined by [facility] in a manner consistent with CLIA requirements. This test has not been cleared or approved by the U.S. Food and Drug Administration. 47 ADDITIONAL INFORMATION This test was developed and its performance characteristics determined by [facility] in a manner consistent with CLIA requirements. This test has not been cleared or approved by the U.S. Food and Drug Administration. 48 ADDITIONAL INFORMATION This test was developed and its performance characteristics determined by [facility] in a manner consistent with CLIA requirements. This test has not been cleared or approved by the U.S. Food and Drug Administration. 49 ADDITIONAL INFORMATION This test was developed and its performance characteristics determined by [facility] in a manner consistent with CLIA requirements. This test has not been cleared or approved by the U.S. Food and Drug Administration. 50 ADDITIONAL INFORMATION This test was developed and its performance characteristics determined by [facility] in a manner consistent with CLIA requirements. This test has not been cleared or approved by the U.S. Food and Drug Administration. 51 ADDITIONAL INFORMATION This test was developed and its performance characteristics determined by [facility] in a manner consistent with CLIA requirements. This test has not been cleared or approved by the U.S. Food and Drug Administration. 52 ADDITIONAL INFORMATION This test was developed and its performance characteristics determined by [facility] in a manner consistent with CLIA requirements. This test has not been cleared or approved by the U.S. Food and Drug Administration. 53 ADDITIONAL INFORMATION This test was developed and its performance characteristics determined by [facility] in a manner consistent with CLIA requirements. This test has not been cleared or approved by the U.S. Food and Drug Administration. 54 ADDITIONAL INFORMATION This test was developed and its performance characteristics determined by [facility] in a manner consistent with CLIA requirements. This test has not been cleared or approved by the U.S. Food and Drug Administration. 55 Due to reagent unavailability, ARBI: Acetylcholine Receptor (Muscle AChR) Binding Antibody, Serum, will not be performed at [facility] [employer]. If Acetylcholine Receptor Binding Antibody testing is [...] developed and its performance characteristics determined by [facility] in a manner consistent with CLIA requirements. This test has not been cleared or approved by the U.S. Food and Drug Administration. 56 ADDITIONAL INFORMATION This test was developed and its performance characteristics determined by [facility] in a manner consistent with CLIA requirements. This test has not been cleared or approved by the U.S. Food and Drug Administration. 57 ADDITIONAL INFORMATION This test was developed and its performance characteristics determined by [facility] in a manner consistent with CLIA requirements. This test has not been cleared or approved by the U.S. Food and Drug Administration. Test Performed by: [facility] - [address] [address] 58 REFERENCE VALUE 31.2 - 61.3 Test Performed by: [address] [address] 59 Anticoagulants (for example oral direct thrombin inhibitors [...] This test has been modified from the concrete block layer's instructions. Its performance characteristics were determined by [facility] in a manner consistent with CLIA requirements. This test has not been cleared or approved by the U.S. Food and Drug Administration. 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 This test has been modified from the concrete block layer's instructions. Its performance characteristics were determined by [facility] in a manner consistent with CLIA requirements. This test has not been cleared or approved by the U.S. Food and Drug Administration. 61 RESULT: Stefano Higgins M.D., Ph.D. 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 The Prothrombin D18949Y mutation is a risk factor for venous thromboembolism. The individual may have other genetic and environmental risk factors for thrombosis. Consider genetic consultation and counseling of potentially affected family members regarding laboratory testing. ADDITIONAL INFORMATION This test is a direct mutation analysis using PCR amplification, signal generation and release by cleavage of sequence specific alleles ([employer], [employer], [place], [place]). This test has been modified from the concrete block layer's instructions. Its performance characteristics were determined by [facility] in a manner consistent with CLIA requirements. This test has not been cleared or approved by the U.S. Food and Drug Administration. 63 RESULT: Stefano Higgins M.D., Ph.D. 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 Ok to cancel the discharge letter. F/U appt in 3 months
[2019-05-06 20:50] LABS: INR 1.21 (0.82-1.09)
[2019-05-06 21:27] VITALS: BP 122/75
== END 2019-05-06 21:26 | disposition home or self-care (01) ==
LOC: ED 19:02
DX: S90.02XA Contusion of left ankle, initial encounter (principal); X58.XXXA Exposure to other specified factors, initial encounter; Y93.55 Activity, bike riding; Z88.0 Allergy status to penicillin; Z88.8 Allergy status to other drugs, medicaments and biological substances; I10 Essential (primary) hypertension; Z86.718 Personal history of other venous thrombosis and embolism; Z79.01 Long term (current) use of anticoagulants; F17.210 Nicotine dependence, cigarettes, uncomplicated
CPT/HCPCS: 36415; 85610; 99282

== ENCOUNTER 2019-07-02 10:23 | Emergency (ER) | payer OTHER ==
[2019-07-02] MEDS ORDERED: Meclizine TAB* 12.5 MG PO ONE (10:37)
[2019-07-02] MEDS ORDERED: NS 0.9% 1000 ML** 1,000 ML IV ONE (10:37)
[2019-07-02 10:54] LABS: ABS Basophils 0.1 10^3/ul (0-0.2); ABS Lymphocytes 0.8 10^3/ul (1.0-4.8); ABS Monocytes 0.7 10^3/ul (0-0.8); ABS Neutrophils 4.4 10^3/ul (1.5-7.7); Eosinophil % 0.7 %; Hematocrit 46 % (42-52); Hemoglobin 15.8 g/dL (14.0-18.0); Lymphocyte % 12.7 %; Mean Corpuscular HGB Conc 35 g/dL (31-36); Mean Corpuscular Hemoglobin 33 pg (27-31); Mean Corpuscular Volume 97 fL (80-94); Mean Platelet Volume 6.2 fL (7.4-10.4); Nucleated Red Blood Cells % 0.1; Platelet Count 156 10^3/uL (150-450); Red Blood Count 4.72 10^6 /uL (4.18-5.48); Red Cell Distribution Width 13 % (10-15)
[2019-07-02 11:01] LABS: INR 2.76 (0.82-1.09)
[2019-07-02 11:11] LABS: ALT 48 U/L (7-52); Albumin 4.2 g/dL (3.2-5.2); Albumin/Globulin Ratio 1.4 (1-3); Alkaline Phosphatase 87 U/L (34-104); Amylase 52 U/L (29-103); BUN/Creatinine Ratio 16.4 (8-20); Blood Urea Nitrogen 12 mg/dL (6-24); C Reactive Protein 1.26 mg/L (<8.01); CO2 Carbon Dioxide 27 mmol/L (22-32); Calcium 9.1 mg/dL (8.6-10.3); Chloride 98 mmol/L (101-111); Creatine Kinase 111 U/L (10-223); EGFR Non-African American 111.6 (>60); Globulin 3.1 g/dL (2-4); Glucose 104 mg/dL (70-100); Magnesium 1.8 mg/dL (1.9-2.7); Sodium 134 mmol/L (135-145); Total Protein 7.3 g/dL (6.4-8.9)
[2019-07-02 11:15] LABS: Alcohol < 10 mg/dL (<10)
[2019-07-02 12:02] LABS: AST 63 U/L (13-39); Anion Gap 9 mmol/L (2-11); Potassium 4.1 mmol/L (3.5-5.0)
[2019-07-02 13:08] VITALS: BP 154/93
--- NOTE | 2019-07-02 13:12 | ED ---
Dizziness - HPI Summary HPI Summary: This patient is a 54-year-old male presenting to the ED with acute onset dizziness this morning while out walking his dog. He states he has had this in the past. He was dx with viral syndome when he was seen for this in Aug. He states he is feeling somewhat improved since arrival. Denies any drug use, endorses nightly alcohol use, last use last evening. Denies any nausea or vomiting. Denies any abdominal pain, urinary symptoms, constipation or diarrhea. Denies any CP or SOB. He does smoke a half a pack to 1 pack per day and has for 40 years. He takes warfarin as he has a history of a DVT, but takes no hypertensive medications. He states when he had this in August, a CT scan was obtained which showed no acute findings. His labs at that time were also WNL. Symptoms are worse with movement and better with rest. Symptoms are worse with head movements of side to side. Denies any visual changes, or disturbances, however he does admit to losing his glasses about 4 days ago. - History Of Current Complaint Chief Complaint: EDDizziness Stated Complaint: NAUSEA/GENERAL ILLNESS PER EMS Time Seen by Provider: 07/02/19 10:29 Hx From Patient Unobtainable Due To: Altered Mental Status Timing: Constant Severity Initially: Moderate Severity Currently: Moderate Character: Room Spinning Aggravating Factor(s): Nothing Alleviating Factor(s): Nothing Associated Signs And Symptoms: Positive: Negative - Risk Factors Cardiac Risk Factors: Negative CVA Risk Factor: Negative - Allergies/Home Medications Allergies/Adverse Reactions: Allergies Allergy/AdvReac Type Severity Reaction Status Date / Time aspirin Allergy Fever Verified 07/02/19 10:49 Penicillins Allergy Hives Verified 07/02/19 10:49 PMH/Surg Hx/FS Hx/Imm Hx Previously Healthy: Yes Endocrine/Hematology History: Reports: Hx Anticoagulant Therapy - on Warfarin Cardiovascular History: Reports: Hx Deep Vein Thrombosis, Hx Hypertension Sensory History: Denies: Hx Legally Blind, Hx Deafness Opthamlomology History: Denies: Hx Legally Blind Psychiatric History: Reports: Hx Substance Abuse - Surgical History Surgery Procedure, Year, and Place: none - Immunization History Hx Pertussis Vaccination: No Immunizations Up to Date: Yes Infectious Disease History: No Infectious Disease History: Denies: Traveled Outside the [place] in Last 30 Days - Family History Known Family History: Negative: Hypertension, Diabetes - Social History Occupation: Unemployed Lives: With Family Alcohol Use: Daily Alcohol Amount: 6 beers per day Hx Substance Use: No Substance Use Type: Reports: None Hx Tobacco Use: Yes Smoking Status (MU): Heavy Every Day Tobacco Smoker Review of Systems Constitutional: Negative Eyes: Negative ENT: Negative Respiratory: Negative Gastrointestinal: Negative Skin: Negative Psychological: Normal All Other Systems Reviewed And Are Negative: Yes Physical Exam Triage Information Reviewed: Yes Vital Signs On Initial Exam: Initial Vitals Pulse Pulse Ox 65 96 07/02/19 10:29 07/02/19 10:29 Vital Signs Reviewed: Yes Appearance: Positive: Well-Appearing, Well-Nourished Skin: Positive: Skin Color Reflects Adequate Perfusion Head/Face: Positive: Normal Head/Face Inspection Eyes: Positive: EOMI, SHIVA, Conjunctiva Clear Neck: Positive: Supple, No Lymphadenopathy Respiratory/Lung Sounds: Positive: Clear to Auscultation, Breath Sounds Present Cardiovascular: Positive: RRR, Pulses are Symmetrical in both Upper and Lower Extremities Musculoskeletal: Positive: Normal, Strength/ROM Intact Neurological: Positive: Sensory/Motor Intact, Alert, Oriented to Person Place, Time, CN Intact II-III, Normal Gait, Speech Normal Psychiatric: Positive: Normal, Affect/Mood Appropriate AVPU Assessment: Alert Diagnostics - Vital Signs Vital Signs Temp Pulse Resp BP Pulse Ox 07/02/19 13:01 67 16 154/93 96 07/02/19 13:00 65 14 98 07/02/19 12:46 67 29 158/93 98 07/02/19 12:45 68 14 158/95 98 07/02/19 12:43 69 14 150/86 97 07/02/19 12:31 68 12 139/84 96 07/02/19 12:01 67 18 146/86 07/02/19 12:00 71 19 95 07/02/19 11:31 68 13 146/85 97 07/02/19 11:01 68 14 147/87 95 07/02/19 11:00 68 15 95 07/02/19 10:31 69 178/107 97 07/02/19 10:30 98.1 F 70 19 178/107 93 07/02/19 10:29 65 96 - Laboratory Lab Results: Lab Results 07/02/19 07/02/19 07/02/19 Range/Units 10:44 10:44 10:44 WBC 6.0 (3.5-10.8) 10^3/uL RBC 4.72 (4.18-5.48) 10^6 /uL Hgb 15.8 (14.0-18.0) g/dL Hct 46 (42-52) % MCV 97 H (80-94) fL MCH 33 H (27-31) pg MCHC 35 (31-36) g/dL RDW 13 (10-15) % Plt Count 156 (150-450) 10^3/uL MPV 6.2 L (7.4-10.4) fL Neut % (Auto) 73.2 % Lymph % (Auto) 12.7 % Duchesne % (Auto) 11.3 % Eos % (Auto) 0.7 % Baso % (Auto) 2.1 % Absolute Neuts (auto) 4.4 (1.5-7.7) 10^3/ul Absolute Lymphs (auto) 0.8 L (1.0-4.8) 10^3/ul Absolute Monos (auto) 0.7 (0-0.8) 10^3/ul Absolute Eos (auto) 0.0 (0-0.6) 10^3/ul Absolute Basos (auto) 0.1 (0-0.2) 10^3/ul Absolute Nucleated RBC 0.0 10^3/ul Nucleated RBC % 0.1 INR (Anticoag Therapy) 2.76 H (0.82-1.09) Sodium 134 L (135-145) mmol/L Potassium 4.1 (3.5-5.0) mmol/L Chloride 98 L (101-111) mmol/L Carbon Dioxide 27 (22-32) mmol/L Anion Gap 9 (2-11) mmol/L BUN 12 (6-24) mg/dL Creatinine 0.73 (0.67-1.17) mg/dL Est GFR ( Amer) 135.0 (>60) Est GFR (Non-Af Amer) 111.6 (>60) BUN/Creatinine Ratio 16.4 (8-20) Glucose 104 H (70-100) mg/dL Lactic Acid (0.5-2.0) mmol/L Calcium 9.1 (8.6-10.3) mg/dL Magnesium 1.8 L (1.9-2.7) mg/dL Total Bilirubin 0.60 (0.2-1.0) mg/dL AST 63 H (13-39) U/L ALT 48 (7-52) U/L Alkaline Phosphatase 87 (34-104) U/L Total Creatine Kinase 111 (10-223) U/L Troponin I 0.00 (<0.04) ng/mL C-Reactive Protein 1.26 (<8.01) mg/L Total Protein 7.3 (6.4-8.9) g/dL Albumin 4.2 (3.2-5.2) g/dL Globulin 3.1 (2-4) g/dL Albumin/Globulin Ratio 1.4 (1-3) Amylase 52 (29-103) U/L Lipase 38 (11.0-82.0) U/L Serum Alcohol < 10 (<10) mg/dL 07/02/19 Range/Units 10:44 WBC (3.5-10.8) 10^3/uL RBC (4.18-5.48) 10^6 /uL Hgb (14.0-18.0) g/dL Hct (42-52) % MCV (80-94) fL MCH (27-31) pg MCHC (31-36) g/dL RDW (10-15) % Plt Count (150-450) 10^3/uL MPV (7.4-10.4) fL Neut % (Auto) % Lymph % (Auto) % Duchesne % (Auto) % Eos % (Auto) % Baso % (Auto) % Absolute Neuts (auto) (1.5-7.7) 10^3/ul Absolute Lymphs (auto) (1.0-4.8) 10^3/ul Absolute Monos (auto) (0-0.8) 10^3/ul Absolute Eos (auto) (0-0.6) 10^3/ul Absolute Basos (auto) (0-0.2) 10^3/ul Absolute Nucleated RBC 10^3/ul Nucleated RBC % INR (Anticoag Therapy) (0.82-1.09) Sodium (135-145) mmol/L Potassium (3.5-5.0) mmol/L Chloride (101-111) mmol/L Carbon Dioxide (22-32) mmol/L Anion Gap (2-11) mmol/L BUN (6-24) mg/dL Creatinine (0.67-1.17) mg/dL Est GFR ( Amer) (>60) Est GFR (Non-Af Amer) (>60) BUN/Creatinine Ratio (8-20) Glucose (70-100) mg/dL Lactic Acid 1.0 (0.5-2.0) mmol/L Calcium (8.6-10.3) mg/dL Magnesium (1.9-2.7) mg/dL Total Bilirubin (0.2-1.0) mg/dL AST (13-39) U/L ALT (7-52) U/L Alkaline Phosphatase (34-104) U/L Total Creatine Kinase (10-223) U/L Troponin I (<0.04) ng/mL C-Reactive Protein (<8.01) mg/L Total Protein (6.4-8.9) g/dL Albumin (3.2-5.2) g/dL Globulin (2-4) g/dL Albumin/Globulin Ratio (1-3) Amylase (29-103) U/L Lipase (11.0-82.0) U/L Serum Alcohol (<10) mg/dL Result Diagrams: 07/02/19 10:44 07/02/19 10:44 Lab Statement: Any lab studies that have been ordered have been reviewed, and results considered in the medical decision making process. Dizzy Course/Dx - Course Course Of Treatment: During course of treatment with tight TY PA there doesn't look like a mean of ulcer a LIKE she during this course of treatment, the patient is evaluated for acute onset dizziness while walking his dog. He states he feels somewhat better now, but symptoms are worse with head movements. He admits to drinking alcohol last night, however this is at his baseline and he denies drinking more heavily than usual. Labs obtained which are fairly unremarkable. CT was not obtained at this time as this was obtained 10 months ago and was normal. First a trial of meclizine was given. On physical examination, patient appears well. Horizontal nystagmus is noted bilaterally. EOMI/PERRLA. No cervical LAD. No signs of trauma. No shakiness or symptoms of anxiety. No tremors. Lungs CTA, RRR. No abdominal tenderness throughout. Unable to assess gait this patient is dizzy. After the meclizine, the patient improves and states he is currently asymptomatic. He stands without faltering and gait is stable. Orthostatics within normal range. He will be discharged home with vertigo. - Diagnoses Provider Diagnoses: Vertigo Discharge ED - Sign-Out/Discharge Documenting (check all that apply): Patient Departure Patient Received Moderate/Deep Sedation with Procedure: No - Discharge Plan Condition: Stable Disposition: HOME Prescriptions: Meclizine TAB* [Antivert 12.5 TAB*] 25 mg PO TID PRN #20 tab MDD 3 PRN Reason: Dizziness Patient Education Materials: Meclizine (By mouth), Vertigo (ED) Referrals: Yani Do MD [Primary Care Provider] - Additional Instructions: Meclizine 25mg three times daily as needed for dizziness Get up slowly from sitting to standing If you are having continuing/worsening symptoms despite this medication - you need to return to the ED immediately! - Billing Disposition and Condition Condition: STABLE Disposition: Home
== END 2019-07-02 13:17 | disposition home or self-care (01) ==
LOC: ED 10:23
DX: R42 Dizziness and giddiness (principal); I10 Essential (primary) hypertension; F17.210 Nicotine dependence, cigarettes, uncomplicated; Z86.718 Personal history of other venous thrombosis and embolism; Z79.01 Long term (current) use of anticoagulants; Z79.899 Other long term (current) drug therapy; Z88.6 Allergy status to analgesic agent; Z88.0 Allergy status to penicillin
CPT/HCPCS: 36415; 80053; 80320; 82150; 82550; 83605; 83690; 83735; 84484; 85025; 85610; 86140; 96360; 99283; A9270-GY; G0480

== ENCOUNTER 2023-05-02 17:15 | Inpatient (IN) ==
[2023-05-02] MEDS ORDERED: Lactated Ringers 1000 ml BAG 1,000 ML IV ONE ×2 (17:39→18:29)
[2023-05-02 17:51] LABS: Hematocrit 46.9 % (38-53); Hemoglobin 16.4 g/dL (13.2-16.3); Mean Corpuscular Hemoglobin 34.7 pg (27-33); Mean Corpuscular Volume 99.1 fL (80-97); Mean Platelet Volume 8.5 fL (7.5-11.2); Platelet Count 196 10^3/uL (150-450); Red Blood Count 4.74 10^6/uL (4.06-5.63); Red Cell Distribution Width 13.8 % (12-17); White Blood Count 9.1 10^3/uL (3.6-10.2)
[2023-05-02 17:53] LABS: INR 1.03 (0.88-1.18)
[2023-05-02 18:07] LABS: ALT 20 U/L (7-52); AST 58 U/L (13-39); Albumin 3.4 g/dL (3.2-5.2); Albumin/Globulin Ratio 0.8 (1-3); Alkaline Phosphatase 53 U/L (35-149); Anion Gap 14 mmol/L (2-16); Blood Urea Nitrogen 45 mg/dL (6-24); CO2 Carbon Dioxide 19 mmol/L (22-32); Calcium 9.5 mg/dL (8.6-10.3); Chloride 98 mmol/L (101-111); Globulin 4.1 g/dL (2-4); Glucose 174 mg/dL (70-100); Potassium 3.5 mmol/L (3.5-5.0); Sodium 131 mmol/L (135-145); Total Protein 7.5 g/dL (6.4-8.9); eGFR CKD-EPI 37.7 (>60)
[2023-05-02] MEDS ORDERED: cefTRIAXone 1 gm/50 mL D5W 1 GM/50 ML BAG IV ONE (18:10)
[2023-05-02] MEDS ORDERED: Azithromycin 500 mg/250 ml NS 500 MG/250 ML BAG IVPB ONE (18:10)
[2023-05-02 18:12] LABS: High Sens Troponin Baseline 127 pg/mL (<20)
[2023-05-02 18:20] LABS: Alcohol, S < 13 mg/dL (<13)
[2023-05-02 18:23] LABS: ABS Basophils 0.1 10^3/uL (0.0-0.1); ABS Lymphocytes 0.4 10^3/uL (1.0-4.8); ABS Monocytes 0.4 10^3/uL (0.0-1.1); ABS Neutrophils 8.2 10^3/uL (1.5-7.6); ABS Nucleated RBC 0.01 10^3/ul; Nucleated Red Blood Cells % 0.1 /100 WBC (0.0-0.4)
[2023-05-02] MEDS ORDERED: Digoxin IV 0.5 MG/2 ML AMP (0.25 MG/ML) IV SLOW PU ONE (18:31)
[2023-05-02] MEDS ORDERED: Ondansetron 4 mg VIAL 2 MG/ML 2 ml VIAL IV PRN (18:58)
[2023-05-02 19:09] LABS: High Sensitivity Troponin 1 Hr 119 pg/mL (<20)
[2023-05-02] MEDS ORDERED: Enoxaparin 40 MG/0.4 ML SYR SUBCUT SCH (19:30)
[2023-05-02] MEDS ORDERED: DOXYcycline 100 MG in NS 0.9% 250 ml 250 ML IVPB SCH (20:00)
[2023-05-02] MEDS ORDERED: Enoxaparin 40 MG/0.4 ML SYR SUBCUT ONE (20:23)
[2023-05-02] MEDS: Polyethylene Glycol 3350 17 GM PACKET PO PRN (23:51)
[2023-05-03 04:18] LABS: Hematocrit 43.8 % (38-53); Hemoglobin 15.3 g/dL (13.2-16.3); Mean Corpuscular Volume 99.9 fL (80-97); Mean Platelet Volume 8.3 fL (7.5-11.2); Platelet Count 173 10^3/uL (150-450); Red Blood Count 4.38 10^6/uL (4.06-5.63); Red Cell Distribution Width 13.9 % (12-17); White Blood Count 8.1 10^3/uL (3.6-10.2)
[2023-05-03 04:33] LABS: Calcium 8.7 mg/dL (8.6-10.3); Creatinine, Serum 1.9 mg/dL (0.67-1.17); Magnesium 2.5 mg/dL (1.9-2.7); eGFR CKD-EPI 40.1 (>60)
[2023-05-03 04:38] LABS: Potassium 3.3 mmol/L (3.5-5.0)
[2023-05-03 04:50] LABS: ABS Basophils 0.1 10^3/uL (0.0-0.1); ABS Lymphocytes 0.6 10^3/uL (1.0-4.8); ABS Monocytes 0.2 10^3/uL (0.0-1.1); ABS Neutrophils 7.3 10^3/uL (1.5-7.6); ABS Nucleated RBC 0.01 10^3/ul; Lymphocyte % 6.8 %; Nucleated Red Blood Cells % 0.1 /100 WBC (0.0-0.4); RBC Morphology Normal (Normal); Toxic Granulation 1+
[2023-05-03] MEDS ORDERED: Potassium Chlor 20 meq TAB.ER PO ONE (06:05)
[2023-05-03] MEDS: KCL 20 MEQ/100 ML IVPREMIX 20 MEQ/100 ML BAG IV SCH ×2 (06:29→08:53)
[2023-05-03] MEDS: Metoprolol Tartrate 5 mg VIAL 5 ml VIAL (1 mg/ml) IV PRN ×2 (07:24→23:55)
[2023-05-03] MEDS ORDERED: Enoxaparin 40 MG/0.4 ML SYR SUBCUT SCH ×3 (09:00→21:00)
[2023-05-03 09:27] LABS: PCO2 Arterial 25 mmHg (35-45); PO2 Arterial 70 mmHg (80-100)
[2023-05-03] MEDS ORDERED: Lactated Ringers 1000 ml BAG 500 ML IV ONE (10:09)
[2023-05-03] MEDS ORDERED: LORazepam 2 mg VIAL 1 ml IV PUSH SCH (11:00)
[2023-05-03] MEDS: Multivitamins/Minerals TAB PO SCH (12:40)
[2023-05-03] MEDS ORDERED: Enoxaparin 60 MG/0.6 ML SYR SUBCUT SCH (15:00)
[2023-05-03 17:30] LABS: Calcium 8.8 mg/dL (8.6-10.3); Creatinine, Serum 1.23 mg/dL (0.67-1.17); eGFR CKD-EPI 67.6 (>60)
[2023-05-03] MEDS: Azithromycin 500 mg/250 ml NS 500 MG/250 ML BAG IVPB SCH (18:23)
[2023-05-03] MEDS ORDERED: cefTRIAXone 1 gm/50 mL D5W 1 GM/50 ML BAG IV SCH (18:30)
[2023-05-03] MEDS ORDERED: Albuterol/Ipratropium NEB.SOL (2.5/0.5 MG) 3 ML NEB.SOLN INH PRN (23:28)
[2023-05-04] MEDS: Fluticasone NASAL SPRAY 50MCG 16 gm SPRAY BTL BOTH NARES SCH ×2 (00:41→11:00)
[2023-05-04 00:53] LABS: PCO2 Arterial 28 mmHg (35-45); PO2 Arterial 72 mmHg (80-100)
[2023-05-04 04:25] LABS: Hematocrit 41.9 % (38-53); Hemoglobin 14.6 g/dL (13.2-16.3); Mean Corpuscular Hemoglobin 34.2 pg (27-33); Mean Corpuscular Hgb Conc 34.8 g/dL (31-36); Mean Corpuscular Volume 98.4 fL (80-97); Mean Platelet Volume 8.9 fL (7.5-11.2); Platelet Count 200 10^3/uL (150-450); Red Blood Count 4.26 10^6/uL (4.06-5.63); Red Cell Distribution Width 14.1 % (12-17); White Blood Count 9.4 10^3/uL (3.6-10.2)
[2023-05-04 04:40] LABS: Blood Urea Nitrogen 38 mg/dL (6-24); CO2 Carbon Dioxide 22 mmol/L (22-32); Calcium 8.9 mg/dL (8.6-10.3); Chloride 100 mmol/L (101-111); Creatinine, Serum 1.07 mg/dL (0.67-1.17); Glucose 134 mg/dL (70-100); Magnesium 2.2 mg/dL (1.9-2.7); Sodium 130 mmol/L (135-145); eGFR CKD-EPI 79.9 (>60)
[2023-05-04 04:47] LABS: ABS Basophils 0.1 10^3/uL (0.0-0.1); ABS Lymphocytes 0.4 10^3/uL (1.0-4.8); ABS Monocytes 0.3 10^3/uL (0.0-1.1); ABS Neutrophils 8.6 10^3/uL (1.5-7.6); ABS Nucleated RBC 0.02 10^3/ul; Eosinophil % 0.1 %; Lymphocyte % 4.5 %; Nucleated Red Blood Cells % 0.2 /100 WBC (0.0-0.4)
[2023-05-04 04:49] LABS: Anion Gap 8 mmol/L (2-16)
[2023-05-04 05:27] LABS: Phosphorus 2.2 mg/dL (2.5-5.0)
[2023-05-04] MEDS: Metoprolol Tartrate 5 mg VIAL 5 ml VIAL (1 mg/ml) IV PRN (06:27)
[2023-05-04] MEDS ORDERED: Enoxaparin 60 MG/0.6 ML SYR SUBCUT SCH (07:30)
[2023-05-04] MEDS ORDERED: Acetaminophen IV 1 GM/100ML 1,000 MG/100 ML BAG IV ONE (07:34)
[2023-05-04] MEDS: Acetaminophen IV 1 GM/100ML 1,000 MG/100 ML BAG IV PRN ×2 (07:45→17:05)
[2023-05-04] MEDS ORDERED: Zosyn per Pharmacy NOTE FOLLOW UP SCH (08:00)
[2023-05-04] MEDS: Multivitamins/Minerals TAB PO SCH (08:39)
[2023-05-04] MEDS: Cefepime 2 GM in Dextrose 2 GM/50 ML BAG IV SCH ×2 (09:43→18:05)
[2023-05-04] MEDS: metroNIDAZOLE IV 500 MG/100ML 500 MG/100 ML BAG IVPB SCH ×2 (10:49→17:15)
[2023-05-04] MEDS ORDERED: LORazepam 2 mg VIAL 1 ml IV PUSH ONE (11:54)
[2023-05-04] MEDS ORDERED: Lorazepam PYXIS KEY PRN (11:54)
[2023-05-04 15:53] LABS: Urine Appearance Cloudy; Urine Bilirubin Negative (Negative); Urine Blood 1+ (Negative); Urine Color Yellow; Urine Glucose Negative (Negative); Urine Ketones Negative (Negative); Urine Nitrite Negative (Negative); Urine Protein 2+(100 mg/dL) (Negative); Urine Specific Gravity 1.025 (1.002-1.030); Urine Urobilinogen Negative (Negative)
[2023-05-04 16:09] LABS: Urine Bacteria Absent (Absent); Urine Red Blood Cell 1+(3-5/hpf) (Absent); Urine Squamous Epithelial Cell Present (Absent); Urine Waxy Casts Present (Absent); Urine White Blood Cell Trace(0-5/hpf) (Absent)
[2023-05-04] MEDS: Azithromycin 500 mg/250 ml NS 500 MG/250 ML BAG IVPB SCH ×2 (17:11→17:15)
[2023-05-04 17:26] LABS: PCO2 Arterial 27 mmHg (35-45); PO2 Arterial 62 mmHg (80-100)
[2023-05-04] MEDS ORDERED: Acetaminophen IV 1 GM/100ML 1,000 MG/100 ML BAG IV PRN (17:41)
[2023-05-04] MEDS ORDERED: Morphine 2 MG/ML SYRINGE IV PRN (19:29)
[2023-05-04] MEDS: Enoxaparin 60 MG/0.6 ML SYR SUBCUT SCH (20:54)
[2023-05-04 22:50] LABS: PCO2 Arterial 27 mmHg (35-45); PO2 Arterial 65 mmHg (80-100)
[2023-05-05] MEDS: Metoprolol Tartrate 5 mg VIAL 5 ml VIAL (1 mg/ml) IV PRN (00:51)
[2023-05-05] MEDS: Cefepime 2 GM in Dextrose 2 GM/50 ML BAG IV SCH ×3 (00:54→17:03)
[2023-05-05] MEDS: Morphine 2 MG/ML SYRINGE IV PRN ×2 (00:56→07:15)
[2023-05-05] MEDS: metroNIDAZOLE IV 500 MG/100ML 500 MG/100 ML BAG IVPB SCH ×3 (00:58→17:16)
[2023-05-05] MEDS: Acetaminophen IV 1 GM/100ML 1,000 MG/100 ML BAG IV SCH ×2 (02:28→09:30)
[2023-05-05 04:09] LABS: ABS Lymphocytes 0.4 10^3/uL (1.0-4.8); ABS Monocytes 0.4 10^3/uL (0.0-1.1); ABS Neutrophils 10.9 10^3/uL (1.5-7.6); ABS Nucleated RBC 0.01 10^3/ul; Eosinophil % 0.1 %; Hematocrit 39.2 % (38-53); Hemoglobin 13.4 g/dL (13.2-16.3); Lymphocyte % 3.2 %; Mean Corpuscular Hemoglobin 33.7 pg (27-33); Mean Corpuscular Hgb Conc 34.2 g/dL (31-36); Mean Corpuscular Volume 98.6 fL (80-97); Mean Platelet Volume 8.5 fL (7.5-11.2); Nucleated Red Blood Cells % 0.1 /100 WBC (0.0-0.4); Platelet Count 239 10^3/uL (150-450); Red Blood Count 3.98 10^6/uL (4.06-5.63); Red Cell Distribution Width 14.6 % (12-17); White Blood Count 11.7 10^3/uL (3.6-10.2)
[2023-05-05 04:17] LABS: Calcium 8.6 mg/dL (8.6-10.3); Magnesium 2.3 mg/dL (1.9-2.7)
[2023-05-05 04:23] LABS: Creatinine, Serum 0.86 mg/dL (0.67-1.17); Potassium 4.1 mmol/L (3.5-5.0); eGFR CKD-EPI 99.7 (>60)
[2023-05-05] MEDS: Enoxaparin 60 MG/0.6 ML SYR SUBCUT SCH ×2 (07:15→20:06)
[2023-05-05] MEDS ORDERED: Enoxaparin 40 MG/0.4 ML SYR SUBCUT SCH (09:00)
[2023-05-05] MEDS: Fluticasone NASAL SPRAY 50MCG 16 gm SPRAY BTL BOTH NARES SCH (10:08)
[2023-05-05] MEDS: Multivitamins/Minerals TAB PO SCH (10:11)
[2023-05-05] MEDS ORDERED: Furosemide 20 mg/2 ml IV VIAL IV ONE (13:05)
[2023-05-05] MEDS: Azithromycin 500 mg/250 ml NS 500 MG/250 ML BAG IVPB SCH (17:19)
[2023-05-05] MEDS: Polyethylene Glycol 3350 17 GM PACKET PO PRN (17:29)
[2023-05-05] MEDS: Acetaminophen IV 1 GM/100ML 1,000 MG/100 ML BAG IV PRN (21:44)
[2023-05-06] MEDS: Cefepime 2 GM in Dextrose 2 GM/50 ML BAG IV SCH ×3 (00:29→16:44)
[2023-05-06] MEDS: metroNIDAZOLE IV 500 MG/100ML 500 MG/100 ML BAG IVPB SCH ×3 (01:10→16:47)
[2023-05-06 04:31] LABS: Hematocrit 43.9 % (38-53); Hemoglobin 14.8 g/dL (13.2-16.3); Mean Corpuscular Hemoglobin 33.6 pg (27-33); Mean Corpuscular Hgb Conc 33.7 g/dL (31-36); Mean Corpuscular Volume 99.9 fL (80-97); Mean Platelet Volume 7.8 fL (7.5-11.2); Platelet Count 341 10^3/uL (150-450); Red Cell Distribution Width 14.7 % (12-17); White Blood Count 15.5 10^3/uL (3.6-10.2)
[2023-05-06 04:48] LABS: Blood Urea Nitrogen 32 mg/dL (6-24); CO2 Carbon Dioxide 22 mmol/L (22-32); Calcium 8.8 mg/dL (8.6-10.3); Chloride 106 mmol/L (101-111); Creatinine, Serum 0.73 mg/dL (0.67-1.17); Glucose 107 mg/dL (70-100); Magnesium 2.2 mg/dL (1.9-2.7); Sodium 133 mmol/L (135-145); eGFR CKD-EPI 104.8 (>60)
[2023-05-06 04:54] LABS: Anion Gap 5 mmol/L (2-16)
[2023-05-06 05:00] LABS: ABS Eosinophils 0.1 10^3/uL (0.0-0.5); ABS Monocytes 0.7 10^3/uL (0.0-1.1); ABS Neutrophils 13.7 10^3/uL (1.5-7.6); ABS Nucleated RBC 0.02 10^3/ul; Eosinophil % 0.5 %; Lymphocyte % 6.2 %; Nucleated Red Blood Cells % 0.1 /100 WBC (0.0-0.4)
[2023-05-06 05:28] LABS: Phosphorus 2.9 mg/dL (2.5-5.0)
[2023-05-06] MEDS: Metoprolol Tartrate 5 mg VIAL 5 ml VIAL (1 mg/ml) IV PRN (08:01)
[2023-05-06] MEDS: Multivitamins/Minerals TAB PO SCH (08:04)
[2023-05-06] MEDS: Enoxaparin 60 MG/0.6 ML SYR SUBCUT SCH ×2 (08:04→20:09)
[2023-05-06] MEDS: Fluticasone NASAL SPRAY 50MCG 16 gm SPRAY BTL BOTH NARES SCH (08:12)
[2023-05-06] MEDS: Acetaminophen IV 1 GM/100ML 1,000 MG/100 ML BAG IV PRN (15:41)
[2023-05-06] MEDS: Azithromycin 500 mg/250 ml NS 500 MG/250 ML BAG IVPB SCH (17:45)
[2023-05-07] MEDS: Cefepime 2 GM in Dextrose 2 GM/50 ML BAG IV SCH ×3 (00:17→16:45)
[2023-05-07] MEDS: metroNIDAZOLE IV 500 MG/100ML 500 MG/100 ML BAG IVPB SCH ×3 (01:35→16:45)
[2023-05-07] MEDS: Acetaminophen IV 1 GM/100ML 1,000 MG/100 ML BAG IV PRN (03:30)
[2023-05-07 04:42] LABS: Hematocrit 36.4 % (38-53); Hemoglobin 12.5 g/dL (13.2-16.3); Mean Corpuscular Hemoglobin 34.4 pg (27-33); Mean Corpuscular Hgb Conc 34.5 g/dL (31-36); Mean Corpuscular Volume 99.7 fL (80-97); Mean Platelet Volume 7.6 fL (7.5-11.2); Platelet Count 426 10^3/uL (150-450); Red Blood Count 3.65 10^6/uL (4.06-5.63); Red Cell Distribution Width 14.6 % (12-17); White Blood Count 11.1 10^3/uL (3.6-10.2)
[2023-05-07 05:11] LABS: ABS Eosinophils 0.1 10^3/uL (0.0-0.5); ABS Lymphocytes 0.9 10^3/uL (1.0-4.8); ABS Monocytes 0.7 10^3/uL (0.0-1.1); ABS Neutrophils 9.3 10^3/uL (1.5-7.6); Eosinophil % 1.3 %; Lymphocyte % 8.3 %
[2023-05-07 05:20] LABS: Creatinine, Serum 0.57 mg/dL (0.67-1.17); Potassium 3.7 mmol/L (3.5-5.0); eGFR CKD-EPI 112.9 (>60)
[2023-05-07] MEDS ORDERED: Potassium Chlor 20 meq TAB.ER PO ONE (08:20)
[2023-05-07] MEDS ORDERED: Potassium Chlor 10 meq TAB PO ONE (08:20)
[2023-05-07] MEDS: Multivitamins/Minerals TAB PO SCH (08:21)
[2023-05-07] MEDS: Enoxaparin 60 MG/0.6 ML SYR SUBCUT SCH ×2 (08:21→20:12)
[2023-05-07] MEDS: Fluticasone NASAL SPRAY 50MCG 16 gm SPRAY BTL BOTH NARES SCH (08:23)
[2023-05-07] MEDS: Azithromycin 500 mg/250 ml NS 500 MG/250 ML BAG IVPB SCH (17:49)
[2023-05-08] MEDS: metroNIDAZOLE IV 500 MG/100ML 500 MG/100 ML BAG IVPB SCH ×2 (00:31→09:05)
[2023-05-08] MEDS: Cefepime 2 GM in Dextrose 2 GM/50 ML BAG IV SCH ×2 (00:32→08:20)
[2023-05-08 06:28] LABS: Hematocrit 36.3 % (38-53); Hemoglobin 12.2 g/dL (13.2-16.3); Mean Corpuscular Hemoglobin 33.9 pg (27-33); Mean Corpuscular Hgb Conc 33.5 g/dL (31-36); Mean Corpuscular Volume 101.2 fL (80-97); Mean Platelet Volume 7.4 fL (7.5-11.2); Platelet Count 472 10^3/uL (150-450); Red Blood Count 3.58 10^6/uL (4.06-5.63); Red Cell Distribution Width 14.9 % (12-17); White Blood Count 8.1 10^3/uL (3.6-10.2)
[2023-05-08 06:42] LABS: Blood Urea Nitrogen 19 mg/dL (6-24); CO2 Carbon Dioxide 19 mmol/L (22-32); Chloride 106 mmol/L (101-111); Glucose 86 mg/dL (70-100); Magnesium 1.9 mg/dL (1.9-2.7); Sodium 133 mmol/L (135-145); eGFR CKD-EPI 125.7 (>60)
[2023-05-08 06:56] LABS: Anion Gap 8 mmol/L (2-16)
[2023-05-08] MEDS: Fluticasone NASAL SPRAY 50MCG 16 gm SPRAY BTL BOTH NARES SCH (07:59)
[2023-05-08] MEDS: Enoxaparin 60 MG/0.6 ML SYR SUBCUT SCH ×2 (08:07→21:35)
[2023-05-08] MEDS: Multivitamins/Minerals TAB PO SCH (08:08)
[2023-05-08] MEDS ORDERED: Furosemide 40 mg/4 ml IV VIAL IV ONE (08:10)
[2023-05-08 08:16] LABS: Blood Urea Nitrogen 20 mg/dL (6-24); CO2 Carbon Dioxide 19 mmol/L (22-32); Calcium 7.6 mg/dL (8.6-10.3); Chloride 103 mmol/L (101-111); Creatinine, Serum 0.45 mg/dL (0.67-1.17); Glucose 91 mg/dL (70-100); Sodium 131 mmol/L (135-145); eGFR CKD-EPI 121.3 (>60)
[2023-05-08 08:18] LABS: Anion Gap 9 mmol/L (2-16)
[2023-05-08 08:54] LABS: Potassium, Whole Blood 4.2 mmol/L (3.4-4.5)
[2023-05-08] MEDS: cefTRIAXone 1 gm/50 mL D5W 1 GM/50 ML BAG IV SCH (12:03)
[2023-05-08] MEDS: Azithromycin 500 mg/250 ml NS 500 MG/250 ML BAG IVPB SCH (16:12)
[2023-05-08] MEDS: Polyethylene Glycol 3350 17 GM PACKET PO PRN (22:00)
[2023-05-09 06:03] LABS: Hematocrit 36.2 % (38-53); Hemoglobin 12.7 g/dL (13.2-16.3); Mean Corpuscular Hemoglobin 34.6 pg (27-33); Mean Corpuscular Hgb Conc 35.2 g/dL (31-36); Mean Corpuscular Volume 98.3 fL (80-97); Mean Platelet Volume 7.3 fL (7.5-11.2); Platelet Count 643 10^3/uL (150-450); Red Blood Count 3.68 10^6/uL (4.06-5.63); Red Cell Distribution Width 14.2 % (12-17); White Blood Count 8.8 10^3/uL (3.6-10.2)
[2023-05-09 06:17] LABS: Calcium 7.8 mg/dL (8.6-10.3); Creatinine, Serum 0.49 mg/dL (0.67-1.17); Potassium 3.7 mmol/L (3.5-5.0); eGFR CKD-EPI 118.2 (>60)
[2023-05-09 06:35] LABS: ABS Eosinophils 0.1 10^3/uL (0.0-0.5); ABS Monocytes 0.7 10^3/uL (0.0-1.1); ABS Neutrophils 6.9 10^3/uL (1.5-7.6); ABS Nucleated RBC 0.01 10^3/ul; Eosinophil % 1.2 %; Lymphocyte % 11.9 %; Nucleated Red Blood Cells % 0.1 /100 WBC (0.0-0.4)
[2023-05-09] MEDS: Multivitamins/Minerals TAB PO SCH (08:37)
[2023-05-09] MEDS: Fluticasone NASAL SPRAY 50MCG 16 gm SPRAY BTL BOTH NARES SCH (08:38)
[2023-05-09] MEDS ORDERED: Magnesium Hydroxide LIQ 30 ML UDC PO PRN (09:29)
[2023-05-09] MEDS: cefTRIAXone 1 gm/50 mL D5W 1 GM/50 ML BAG IV SCH (10:48)
[2023-05-09] MEDS: Azithromycin 500 mg/250 ml NS 500 MG/250 ML BAG IVPB SCH (17:59)
[2023-05-10] MEDS: Multivitamins/Minerals TAB PO SCH (08:12)
[2023-05-10] MEDS: Fluticasone NASAL SPRAY 50MCG 16 gm SPRAY BTL BOTH NARES SCH (08:21)
[2023-05-10] MEDS: cefTRIAXone 1 gm/50 mL D5W 1 GM/50 ML BAG IV SCH (11:03)
[2023-05-10] MEDS: Azithromycin 500 mg/250 ml NS 500 MG/250 ML BAG IVPB SCH (18:07)
[2023-05-11] MEDS: Multivitamins/Minerals TAB PO SCH (07:59)
[2023-05-11] MEDS: Fluticasone NASAL SPRAY 50MCG 16 gm SPRAY BTL BOTH NARES SCH (08:07)
[2023-05-11 08:40] LABS: ABS Lymphocytes 0.9 10^3/uL (1.0-4.8); ABS Monocytes 0.9 10^3/uL (0.0-1.1); ABS Neutrophils 9.2 10^3/uL (1.5-7.6); Eosinophil % 0.4 %; Hematocrit 37.6 % (38-53); Hemoglobin 13.1 g/dL (13.2-16.3); Lymphocyte % 7.9 %; Mean Corpuscular Hemoglobin 34.6 pg (27-33); Mean Corpuscular Hgb Conc 34.9 g/dL (31-36); Mean Corpuscular Volume 99.2 fL (80-97); Mean Platelet Volume 6.3 fL (7.5-11.2); Platelet Count 756 10^3/uL (150-450); Red Blood Count 3.79 10^6/uL (4.06-5.63); Red Cell Distribution Width 14.6 % (12-17)
[2023-05-11 09:04] LABS: Albumin 2.9 g/dL (3.2-5.2); Albumin/Globulin Ratio 0.9 (1-3); Calcium 8.4 mg/dL (8.6-10.3); Creatinine, Serum 0.53 mg/dL (0.67-1.17); Globulin 3.1 g/dL (2-4); Potassium 3.8 mmol/L (3.5-5.0); Total Bilirubin 0.5 mg/dL (0.2-1.0); eGFR CKD-EPI 115.4 (>60)
[2023-05-11] MEDS: Azithromycin 500 mg/250 ml NS 500 MG/250 ML BAG IVPB SCH (17:08)
[2023-05-12] MEDS: Multivitamins/Minerals TAB PO SCH (08:22)
[2023-05-12] MEDS: Fluticasone NASAL SPRAY 50MCG 16 gm SPRAY BTL BOTH NARES SCH (08:29)
[2023-05-12 08:54] LABS: ABS Basophils 0.1 10^3/uL (0.0-0.1); ABS Eosinophils 0.1 10^3/uL (0.0-0.5); ABS Lymphocytes 1.4 10^3/uL (1.0-4.8); ABS Monocytes 1.2 10^3/uL (0.0-1.1); ABS Nucleated RBC 0.02 10^3/ul; Eosinophil % 0.5 %; Hemoglobin 13.1 g/dL (13.2-16.3); Lymphocyte % 12.9 %; Mean Corpuscular Hgb Conc 34.5 g/dL (31-36); Mean Corpuscular Volume 98.6 fL (80-97); Mean Platelet Volume 6.4 fL (7.5-11.2); Nucleated Red Blood Cells % 0.2 /100 WBC (0.0-0.4); Platelet Count 720 10^3/uL (150-450); Red Blood Count 3.86 10^6/uL (4.06-5.63); Red Cell Distribution Width 13.9 % (12-17); White Blood Count 10.7 10^3/uL (3.6-10.2)
[2023-05-12 09:23] LABS: Albumin 2.9 g/dL (3.2-5.2); Albumin/Globulin Ratio 0.9 (1-3); Calcium 8.7 mg/dL (8.6-10.3); Creatinine, Serum 0.49 mg/dL (0.67-1.17); Globulin 3.1 g/dL (2-4); Potassium 3.9 mmol/L (3.5-5.0); Total Bilirubin 0.4 mg/dL (0.2-1.0); eGFR CKD-EPI 118.2 (>60)
[2023-05-13] MEDS: Multivitamins/Minerals TAB PO SCH (09:57)
[2023-05-13] MEDS: Fluticasone NASAL SPRAY 50MCG 16 gm SPRAY BTL BOTH NARES SCH (09:57)
[2023-05-14 07:12] LABS: ABS Basophils 0.1 10^3/uL (0.0-0.1); ABS Lymphocytes 1.8 10^3/uL (1.0-4.8); ABS Monocytes 0.8 10^3/uL (0.0-1.1); ABS Neutrophils 5.2 10^3/uL (1.5-7.6); ABS Nucleated RBC 0.01 10^3/ul; Eosinophil % 0.2 %; Hematocrit 37.8 % (38-53); Hemoglobin 13.1 g/dL (13.2-16.3); Lymphocyte % 22.9 %; Mean Corpuscular Hemoglobin 34.5 pg (27-33); Mean Corpuscular Hgb Conc 34.6 g/dL (31-36); Mean Corpuscular Volume 99.8 fL (80-97); Nucleated Red Blood Cells % 0.1 /100 WBC (0.0-0.4); Platelet Count 619 10^3/uL (150-450); Red Blood Count 3.78 10^6/uL (4.06-5.63); Red Cell Distribution Width 13.8 % (12-17); White Blood Count 7.9 10^3/uL (3.6-10.2)
[2023-05-14 07:29] LABS: Albumin 2.9 g/dL (3.2-5.2); Albumin/Globulin Ratio 0.9 (1-3); Calcium 8.9 mg/dL (8.6-10.3); Creatinine, Serum 0.48 mg/dL (0.67-1.17); Globulin 3.4 g/dL (2-4); Potassium 4.1 mmol/L (3.5-5.0); Total Bilirubin 0.4 mg/dL (0.2-1.0); Total Protein 6.3 g/dL (6.4-8.9)
[2023-05-14] MEDS: Multivitamins/Minerals TAB PO SCH (09:16)
[2023-05-14] MEDS: Fluticasone NASAL SPRAY 50MCG 16 gm SPRAY BTL BOTH NARES SCH (11:01)
[2023-05-15 09:42] VITALS: BP 115/76
[2023-05-15] MEDS: Multivitamins/Minerals TAB PO SCH (09:50)
[2023-05-15] MEDS: Fluticasone NASAL SPRAY 50MCG 16 gm SPRAY BTL BOTH NARES SCH (09:51)
== END 2023-05-15 13:30 | disposition home or self-care (01) | DRG 720 ==
LOC: ED 17:15 → ICU 18:12 → EDHOLD 18:58 → SUATTDRO 18:58 → ICU 19:09 → MED 05-09 02:55
PROVIDERS: ADMIT Surgery Surgical Critical Care; ATTEND Internal Medicine